=== PATIENT | male | born 1940 | race Caucasian/White ===

== ENCOUNTER → 2017-06-28 | Outpatient (CLI) | payer BC ==
[~2017-06-28] MED LIST: AGG PO; NXM/40 PO; OFLO0.3S OPL; PRED1SUS3 OPR; ZCRT/40 PO
--- NOTE | 2017-06-28 10:05 | DIAGNOSTIC IMAGING REPORT ---
(RENAL)RETROPERITON COMP CLINICAL HISTORY: 77 years-old Male presenting with CHRONIC KIDNEY DISEASE, STAGE3, POST PROCEDURE. TECHNIQUE: Real-time grayscale and limited color Doppler ultrasound imaging of the kidneys and bladder was performed. COMPARISON: 07/31/2012. FINDINGS: Right kidney: Normal echogenicity. Right kidney measures 10.2 cm. No hydronephrosis. No convincing evidence of calculus or mass. Normal perfusion. Left kidney: Normal echogenicity. Left kidney measures 11 cm. No hydronephrosis. No convincing evidence of calculus or mass. Normal perfusion. Bladder: Reported eccentric right-sided wall thickening, although images are were not saved. Reportedly, bilateral ureteral jets also documented. Other: Suggestion of hyperechogenicity of the liver parenchyma, which could suggest steatosis. IMPRESSION: 1. No evidence of obstruction. 2. Reported eccentric right-sided bladder wall thickening. Further evaluation with cross-sectional imaging or direct visualization with cystoscopy could be considered as clinically warranted. Findings were reportedly visualized by the cryptographic technician, although not saved in PACS. 3. Suggestion of hepatic steatosis. Electronically signed by: Collin Dunaway M.D. 06/28/2017 10:03 AM Dictated Date/Time: 06/28/2017 9:58 AM
--- NOTE | 2017-06-28 10:07 | DIAGNOSTIC IMAGING REPORT ---
ABDOMEN LIMITED (US) HISTORY: Renal insufficiency CHRONIC KIDNEY DISEASE, STAGE3, POST PROCEDURE. Nodule. Hernia. COMPARISON: None. FINDINGS: Small fat-containing periumbilical hernia. Maximum linear dimension is at 1 cm. No evidence of bowel containment. IMPRESSION: 1 cm periumbilical fat-containing hernia. No evidence of bowel containment. This appears to be nonreducible The above report was generated using voice recognition software. It may contain grammatical, syntax or spelling errors. Electronically signed by: John Suarez M.D. 06/28/2017 10:06 AM Dictated Date/Time: 06/28/2017 10:04 AM
== END | disposition home or self-care (01) ==
LOC: C.ULTR 09:00
PROVIDERS: ATTEND Family Medicine
DX: N18.3 Chronic kidney disease, stage 3 (moderate) (principal); Z98.890 Other specified postprocedural states; K42.9 Umbilical hernia without obstruction or gangrene

== ENCOUNTER → 2018-01-07 | Outpatient (CLI) | payer BC ==
[~2018-01-07] MED LIST changes: +NTRGSL/4 UT; -OFLO0.3S OPL; +OXYC-57 PO; -PRED1SUS3 OPR; +[UNRECOGNIZED DRUG - OTHER] OPB
--- NOTE | 2018-01-08 07:24 | DIAGNOSTIC IMAGING REPORT ---
ADDENDUM Addendum: In comparison to ultrasound of June 28, 2017, the lesions arising from the right lateral wall of the bladder have mildly increased in size and are highly suggestive of a neoplasm. Electronically signed by: Ulises Schaefer M.D. 01/08/2018 7:48 AM Dictated Date/Time: 01/08/2018 7:47 AM ORIGINAL REPORT BLADDER ULTRASOUND CLINICAL HISTORY: REEVALUATE BLADDER THICKENING COMPARISON STUDY: Renal ultrasound June 28, [address] of the abdomen and pelvis April 30, 2014. FINDINGS: Note is made of a 1 cm polypoid lesion which contains color flow within the right posterior lateral aspect of the bladder. In addition, there is asymmetric right lateral bladder wall thickening. IMPRESSION: 1 cm polypoid lesion within the right posterior lateral aspect of the bladder which contains color flow and is highly suggestive of a urothelial neoplasm. In addition, asymmetric irregular right lateral bladder wall thickening which is also suspicious for urothelial neoplasm. Urologic consultation is recommended. Electronically signed by: Ulises Schaefer M.D. 01/08/2018 7:23 AM Dictated Date/Time: 01/08/2018 7:18 AM
== END | disposition home or self-care (01) ==
LOC: C.ULTR 12:22
PROVIDERS: ATTEND Family Medicine
DX: N32.89 Other specified disorders of bladder (principal)

== ENCOUNTER → 2018-02-03 | Day surgery (SDC) | payer BC ==
[2018-01-20 13:22] VITALS: BMI 23.0
--- NOTE | 2018-01-20 13:37 | PAT Medication Instructions ---
Service Date Jan 20, 2018. Current Home Medication List Cyclosporine (Ophth) (Restasis), 1 DROP OPB BID Dipyridamole/Aspirin (Aggrenox 25-200 mg), 1 CAP PO BID Esomeprazole Magnesium (Nexium), 1 CAP PO QAM Nitroglycerin (Nitrostat), 0.4 MG UT PRN Simvastatin (Zocor), 1 TAB PO QPM Medication Instructions For Your Scheduled Surgery -Contact your prescriber for instructions for: Dipyridamole/Aspirin (Aggrenox 25-200 mg), 1 CAP PO BID -Continue as directed: Nitroglycerin (Nitrostat), 0.4 MG UT PRN - Take the following medications the morning of surgery with a sip of water: Cyclosporine (Ophth) (Restasis), 1 DROP OPB BID Esomeprazole Magnesium (Nexium), 1 CAP PO QAM - Take the following medications as scheduled the night before surgery: Cyclosporine (Ophth) (Restasis), 1 DROP OPB BID Simvastatin (Zocor), 1 TAB PO QPM If you have any questions please call us at [phone] or [phone] or [phone]
[2018-01-20 14:52] LABS: BASO % 0.4 %; BASO ABS # 0.02 K/uL (0-0.2); EOS % 7.2 %; HEMATOCRIT 39.5 % (42-52); HEMOGLOBIN 13.7 g/dL (14.0-18.0); IG# 0.01 K/uL (0.00-0.02); LYMPH % 32.3 %; MEAN CELL VOLUME 95.2 fL (80-100); MEAN CORPUSCULAR HGB CONC 34.7 g/dl (32-36); MEAN PLATELET VOLUME 10.4 fL (7.4-10.4); MONO % 12.2 %; MONO ABS # 0.68 K/uL (0.11-0.59); NEUT % 47.7 %; NEUT ABS # 2.67 K/uL (1.4-6.5); PLATELET COUNT 124 K/uL (130-400); RED CELL DISTRIBUTION WIDTH CV 12.4 % (11.5-14.5); RED CELL DISTRIBUTION WIDTH SD 42.8 fL (36.4-46.3); WHITE BLOOD COUNT 5.58 K/uL (4.8-10.8)
[2018-01-20 14:59] LABS: CALCIUM 8.6 mg/dl (8.5-10.1); CREATININE 1.64 mg/dl (0.60-1.40); POTASSIUM 4.4 mmol/L (3.5-5.1)
[~2018-02-03] VITALS: Ht 175.3 cm; Wt 70.6 kg
[~2018-02-03] MED LIST changes: +ASCO10003 PO; +ATROPINE SULFATE 0.1 MG/ML 5ML SYR IV PRN; +CIPR-255 PO; +CYCL0.052 OPB; +Cysto-Conray II 17.2% 250ML BOTTLE ONE; +DEXAMETHASONE SOD INJ 4 MG/ML VIAL ONE; +EpHEDrine SULFATE INJ 50 MG/ML AMP IV PRN; +FENTANYL CITRATE INJ 50 MCG/1 ML 2 ML VIAL IV PRN; +FENTANYL CITRATE INJ 50 MCG/1 ML 2 ML VIAL ONE; +LACTATED RINGER'S 1000ML 1,000 ML IV SCH; +LIDOCAINE HCL 2% 2 ML VIAL (20MG/ML) ONE; +ONDANSETRON INJ 2 MG/ML 2 ML VIAL IV PRN; +ONDANSETRON INJ 2 MG/ML 2 ML VIAL ONE; -OXYC-57 PO; +OXYCODONE/ACETAMINOPHEN 7.5-325 TAB PO PRN; +PHEN-775 PO; +PROPOFOL IV EMULSION 10 MG/ML 20 ML VIAL IV ONE; +ZINC1CAP PO; -[UNRECOGNIZED DRUG - OTHER] OPB
[2018-02-03 05:54] VITALS: BP 113/74; PULSE 61; TEMP 36.6; O2SAT 97; Ht 175.3 cm; Wt 70.6 kg
--- NOTE | 2018-02-03 06:54 | History & Physical Bridge Note ---
H&P Re-Evaluation Bridge Note: I have examined the patient, reviewed the History & Physical and in the interval since the performance of the History & Physical I have noted the following changes of clinical significance: No changes noted
--- NOTE | 2018-02-03 06:59 | Discharge Instructions ---
Discharge Instructions Date of Service Feb 03, 2018. Admission Reason for Admission: Bladder Mass Discharge Discharge Diagnosis / Problem: Hematuria Discharge Goals Goal(s): Decrease discomfort, Improve function Activity Recommendations Activity Limitations: resume your previous activity Lifting Limitations: gradually increase as tolerated Exercise/Sports Limitations: gradually increase as tolerated Shower/Bathe: no limitations . Instructions / Follow-Up Instructions / Follow-Up May have blood in the urine. May have discomfort or burning. Call if any fevers or chills. Current Hospital Diet Patient's current hospital diet: Discharge Diet Recommended Diet: Regular Diet Procedures Procedures Performed: Cystoscopy with bilateral retrograde pyelograms. Pending Studies Studies pending at discharge: no Medical Emergencies . Who to Call and When: Medical Emergencies: If at any time you feel your situation is an emergency, please call 911 immediately. . Non-Emergent Contact Non-Emergency issues call your: Primary Care Provider, Urologist Call Non-Emergent contact if: you have a fever, temperature is above 101, temperature is above 101.5, your pain is not controlled, your pain is worsening . . "Provider Documentation" section prepared by Yoan Basilio. .
[2018-02-03] MEDS: CIPROFLOXACIN / D5W 400 MG IV SCH ×2 (07:12→07:13)
--- NOTE | 2018-02-03 07:45 | [facility] Operative Report ---
Operative Report Operative Date Feb 03, 2018. Pre-Operative Diagnosis Hematuria, Bladder Abnormality Post-Operative Diagnosis Same, bladder masses Procedure(s) Performed Cystoscopy with bilateral retrograde pyelogram and TURBT, medium. Surgeon Praful Estimated Blood Loss Minimal Findings Bladder with two lesions, one approx 2 cm and other 2.5 cm. Specimens 1. Bladder Neck Left, 2 cm 2. Bladder wall right, 2.5 cm Drains None Anesthesia Type General Complication(s) none Disposition Recovery Room / PACU Indications Hematuria with abnormality on imaging. Risks and benefits discussed with patient. Description of Procedure Patient was consented and brought back to the operating room. Patient was placed under anesthesia in the supine position and moved to the dorsal lithotomy position. Patient was prepped and draped in the regular sterile fashion. A time out was completed. A 30degree Cystoscope was placed into the bladder and the entire bladder was examined. The bladder was moderately trabeculated. No lesions or masses were identified. The UO's were identified. Two tumors were identified. The UO bilaterally was cannulized with a catheter and a retrograde pyelogram was completed. The bladder was left full and the resection scope was placed. The two tumors were resected and sent seperate. The area was fulgurated. No other areas were identified. At this point, the bladder was emptied. The scope was removed. The patient was cleaned, aroused from anesthesia, and transferred to the pacu in stable condition having tolerated the procedure well with no complications. I was present and participated in all aspects of the procedure. The patient will be monitored in the PACU until transferred I attest to the content of the Intraoperative Record and any orders documented therein. Any exceptions are noted below.
--- NOTE | 2018-02-03 07:47 | DIAGNOSTIC IMAGING REPORT ---
INTRAOPERATIVE RADIOGRAPHS CLINICAL HISTORY: Retrograde ureterogram. Fluoroscopy time: 28 seconds. FINDINGS: 5 spot fluoroscopic views from a bilateral retrograde ureterogram are correlated with abdominal CT dated 04/30/2014 and bladder ultrasound dated 01/07/2018. Mild hydronephrosis is suggested bilaterally. IMPRESSION: Bilateral hydronephrosis is suggested on the retrograde ureterograms. See operative report for detailed findings. Electronically signed by: Fausto Childress M.D. 02/03/2018 7:46 AM Dictated Date/Time: 02/03/2018 7:44 AM
[2018-02-03 08:37] VITALS: BP 111/73; PULSE 63; TEMP 36.3; O2SAT 97
[2018-02-03 08:52] VITALS: BP 112/78; PULSE 65; O2SAT 98
--- NOTE | 2018-02-03 08:56 | Anesthesiology Progress Note ---
Anesthesia Post Op Note Date & Time Feb 03, 2018 at 08:56 Vital Signs Pain Intensity: 2 Vital Signs Past 12 Hours Date Time Temp Pulse Resp B/P (MAP) Pulse Ox O2 Delivery O2 Flow Rate FiO2 02/03/18 08:37 36.3 63 18 111/73 97 Room Air 02/03/18 08:30 36.1 62 14 108/68 97 Room Air 02/03/18 08:20 64 16 103/71 97 Room Air 02/03/18 08:10 67 16 105/64 97 Oxymask 3 02/03/18 08:00 60 16 108/72 97 Oxymask 3 02/03/18 07:54 36.2 66 16 118/73 97 Oxymask 5 02/03/18 05:54 36.6 61 18 113/74 (87) 97 Room Air Notes Mental Status: alert / awake / arousable, participated in evaluation Pt Amnestic to Procedure: Yes Nausea / Vomiting: adequately controlled Pain: adequately controlled Airway Patency, RR, SpO2: stable & adequate BP & HR: stable & adequate Hydration State: stable & adequate Anesthetic Complications: no major complications apparent
[2018-02-03 09:22] VITALS: BP 115/75; PULSE 68; O2SAT 99
[2018-02-03 09:43] VITALS: BP 140/81; PULSE 67; O2SAT 97
== END | disposition home or self-care (01) ==
LOC: C.ACU 05:32
PROVIDERS: ATTEND Urology
DX: C67.9 Malignant neoplasm of bladder, unspecified (principal); R31.0 Gross hematuria; D64.9 Anemia, unspecified; I25.10 Atherosclerotic heart disease of native coronary artery without angina pectoris; I65.29 Occlusion and stenosis of unspecified carotid artery; N28.9 Disorder of kidney and ureter, unspecified; K21.9 Gastro-esophageal reflux disease without esophagitis; E78.00 Pure hypercholesterolemia, unspecified; Z87.891 Personal history of nicotine dependence; Z79.899 Other long term (current) drug therapy

== ENCOUNTER 2018-02-07 14:00 | Inpatient (IN) | payer BC, OTHER ==
[2018-02-07] VITALS (7 sets, daily range): BP systolic 65–103; BP diastolic 34–63; PULSE 68–80; TEMP 36.3–36.6; O2SAT 95–97; Ht 175.3 cm; Wt 70.0 kg
[~2018-02-07] VITALS: Ht 175.3 cm; Wt 70.0 kg
[~2018-02-07 14:00] MED LIST changes: -ATROPINE SULFATE 0.1 MG/ML 5ML SYR IV PRN; -Cysto-Conray II 17.2% 250ML BOTTLE ONE; -DEXAMETHASONE SOD INJ 4 MG/ML VIAL ONE; -EpHEDrine SULFATE INJ 50 MG/ML AMP IV PRN; -FENTANYL CITRATE INJ 50 MCG/1 ML 2 ML VIAL IV PRN; -FENTANYL CITRATE INJ 50 MCG/1 ML 2 ML VIAL ONE; -LACTATED RINGER'S 1000ML 1,000 ML IV SCH; -LIDOCAINE HCL 2% 2 ML VIAL (20MG/ML) ONE; -ONDANSETRON INJ 2 MG/ML 2 ML VIAL IV PRN; -ONDANSETRON INJ 2 MG/ML 2 ML VIAL ONE; -OXYCODONE/ACETAMINOPHEN 7.5-325 TAB PO PRN; -PROPOFOL IV EMULSION 10 MG/ML 20 ML VIAL IV ONE
[2018-02-07] MEDS ORDERED: SODIUM CHLORIDE 0.9% 500ML 500 ML IV STA ×2 (14:33)
[2018-02-07] MEDS ORDERED: ONDANSETRON INJ 2 MG/ML 2 ML VIAL IV STA (14:33)
[2018-02-07] MEDS: MoRPHine SULFATE 10 MG/ML CARP/VIAL IV PRN ×3 (14:40→16:13)
--- NOTE | 2018-02-07 14:52 | DIAGNOSTIC IMAGING REPORT ---
SINGLE VIEW CHEST CLINICAL HISTORY: Generalized abdominal pain. FINDINGS: An AP, portable, upright chest radiograph is compared to study dated 09/12/2017. Correlation is made with chest CT dated 10/09/2011. The examination is degraded by portable technique and patient rotation. The patient is status post midline sternotomy. The heart is top normal for projection. The pulmonary vasculature is noncongested. Chronic interstitial thickening is unchanged. No airspace consolidation or large pleural effusion is identified. No pneumothorax is seen. The skeletal structures are osteopenic. The bony thorax is grossly intact. IMPRESSION: No acute cardiopulmonary abnormality. Electronically signed by: Fausto Childress M.D. 02/07/2018 2:50 PM Dictated Date/Time: 02/07/2018 2:49 PM
[2018-02-07 14:55] LABS: BASO % 0.1 %; BASO ABS # 0.02 K/uL (0-0.2); EOS % 1.7 %; EOS ABS # 0.27 K/uL (0-0.5); HEMATOCRIT 44.1 % (42-52); HEMOGLOBIN 16.3 g/dL (14.0-18.0); IG# 0.14 K/uL (0.00-0.02); LYMPH % 15.5 %; LYMPH ABS # 2.44 K/uL (1.2-3.4); MEAN CELL VOLUME 90.9 fL (80-100); MEAN CORPUSCULAR HEMOGLOBIN 33.6 pg (25-34); MEAN PLATELET VOLUME 10.8 fL (7.4-10.4); MONO % 13.5 %; MONO ABS # 2.13 K/uL (0.11-0.59); NEUT % 68.3 %; NEUT ABS # 10.75 K/uL (1.4-6.5); PLATELET COUNT 171 K/uL (130-400); RED CELL DISTRIBUTION WIDTH CV 12.4 % (11.5-14.5); WHITE BLOOD COUNT 15.75 K/uL (4.8-10.8)
[2018-02-07 15:02] LABS: PTT PATIENT 27.7 SECONDS (21.0-31.0)
--- NOTE | 2018-02-07 15:04 | DIAGNOSTIC IMAGING REPORT ---
ABD/PELVIS WITHOUT FOR STONE CLINICAL HISTORY: 77 years-old Male presenting with EVALUATE FLANK PAIN/HEMATURIA. TECHNIQUE: Multidetector CT of the abdomen and pelvis was performed without the use of intravenous contrast. IV contrast: None. A dose lowering technique was used consistent with the principles of ALARA (as low as reasonably achievable). COMPARISON: 04/30/2014. CT DOSE (mGy.cm): The estimated cumulative dose is 340.39 mGy.cm. FINDINGS: [employer] topogram: Median sternotomy wires. Cholecystectomy clips. Gaseous distended bowel. Lung bases: Minimal basilar opacities, likely atelectasis. Normal heart size. No pericardial or pleural effusion. Liver: Normal morphology. Normal density. Biliary: No gross biliary ductal dilatation allowing for noncontrast technique. Gallbladder surgically absent. Pancreas: Mild parenchymal atrophy. Spleen: Normal noncontrast appearance. Adrenal glands: Normal noncontrast appearance. Kidneys and ureters: Normal noncontrast appearance. Nonspecific mild perinephric fat stranding. No nephrolithiasis. No hydronephrosis. Normal ureters. Bladder: Mild circumferential bladder wall thickening. Perivesicular fat infiltration in the space of Retzius. Pelvic organs: Prostate and seminal vesicles normal. Few prostatic calcifications noted. Bowel: Fluid in the colon could suggest a diarrheal state. Few scattered colonic diverticula. The appendix is not visualized. Small hiatal hernia. Multiple duodenal diverticula. Mild distention of proximal small bowel without a transition point to suggest obstruction. Peritoneal cavity: No free fluid or intraperitoneal gas. Extensive retroperitoneal and extraperitoneal pelvic fluid most pronounced in the presacral space and space of Retzius. This does not appear to arise from the pancreas or kidneys and is primarily pelvic. Lymph nodes: Few scattered subcentimeter retroperitoneal lymph nodes, likely reactive. Vasculature: Atherosclerosis of the normal caliber abdominal aorta. Abdominal wall: Evidence of postsurgical changes in the ventral midline abdomen. No associated fluid. Musculoskeletal: Degenerative changes of the spine. Bilateral pars defects of L5. IMPRESSION: 1. Nonspecific retroperitoneal and extraperitoneal pelvic fluid/inflammatory change. This is primarily centered in the pelvis. Etiology of this is not clear. This may originate from the bladder. Correlate with urinalysis to exclude infectious cystitis. Circumferential bladder wall thickening could also suggest cystitis or be secondary to chronic bladder outlet obstruction. No nephrolithiasis or ureteral calculi. The examination is limited due to noncontrast technique. Close clinical and imaging follow-up recommended. Electronically signed by: Collin Dunaway M.D. 02/07/2018 3:02 PM Dictated Date/Time: 02/07/2018 2:53 PM
[2018-02-07] MEDS ORDERED: CIPR-255 PO (15:11)
[2018-02-07] MEDS ORDERED: ZINC50TA3 PO (15:12)
[2018-02-07 15:16] LABS: ALBUMIN 3.9 gm/dl (3.4-5.0); CREATININE 3.2 mg/dl (0.60-1.40)
[2018-02-07 15:18] LABS: TOTAL PROTEIN 7.6 gm/dl (6.4-8.2)
[2018-02-07] MEDS ORDERED: PIPERACILLIN/TAZOBACTAM 4.5 GM/100ML D5W IV STA (15:18)
[2018-02-07] MEDS ORDERED: DAPTOmycin IV 500 MG in SODIUM CHLORIDE 0.9% 50ML 50 ML IV STA (15:42)
[2018-02-07] MEDS ORDERED: SODIUM CHLORIDE 0.9% 1000ML 1,000 ML IV STA (15:42)
[2018-02-07] MEDS ORDERED: HYDROmorphone INJ 1 MG/ML SYR IV STA (16:01)
[2018-02-07] MEDS ORDERED: SODIUM CHLORIDE 0.9% 1000ML 1,000 ML IV SCH (16:05)
--- NOTE | 2018-02-07 16:07 | EMERGENCY ROOM VISIT NOTE ---
History Report prepared by Niki: Missael Carvajal Under the Supervision of: Dr. Fausto Ames M.D. First contact with patient: 14:22 Chief Complaint: REFERRED BY DOCTOR Stated Complaint: CT SCAN/PAIN MED REFERRED BY DR. ROOSEVELT BOUCHER History of Present Illness The patient is a 77 year old male who presents to the Emergency Room with complaints of significantly worsening abdominal pain that began on the 13th, three days ago. The patient's notes that he had a cystoscopy on the 12th and that his pain began the day after. The patient's pain was initially all on the right side of his abdomen, but is now localized to his lower abdomen. He rates the current severity as a 10/10. The patient states that his abdominal pain is worsened with urination. He is drinking a lot of fluids currently and is urinating every hour on the hour. There has been blood in the urine ever since the surgery. He has not vomited, and there is no flank pain. The patient has a history of a hernia mesh repair, appendectomy, and cholecystectomy. He has also had a CABG surgery. The patient was referred here by his urology office , they want an emergent CT-scan of the abdomen. He has never had any kidney stones. 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 Review of Systems See HPI for pertinent positives & negatives. A total of 10 systems reviewed and were otherwise negative. Past Medical & Surgical Medical Problems: (1) CAD (coronary artery disease) (2) CKD (chronic kidney disease) stage 3, GFR 30-59 ml/min (3) CVA (cerebral vascular accident) (4) GERD (gastroesophageal reflux disease) (5) Intractable pain (6) Small bowel obstruction due to adhesions (7) UTI (urinary tract infection) (8) Vertebral artery occlusion Surgical Problems: (1) Hx of cholecystectomy Family History Diabetes mellitus FH: heart disease FHx: lung disease Hypertension Social History Smoking Status: Never Smoker Alcohol Use: none Drug Use: none Marital Status: Housing Status: lives with family Occupation Status: retired Current/Historical Medications Scheduled Ascorbic Acid (Vitamin C), PO DAILY Ciprofloxacin Hcl (Cipro), 500 MG PO BID Cyclosporine (Ophth) (Restasis), 1 DROP OPB BID Dipyridamole/Aspirin (Aggrenox 25-200 mg), 1 CAP PO BID Esomeprazole Magnesium (Nexium), 1 CAP PO QAM Nitroglycerin (Nitrostat), 0.4 MG UT PRN Simvastatin (Zocor), 1 TAB PO QPM Zinc (Zinc), 50 MG PO QAM Allergies Coded Allergies: Clopidogrel (Verified Allergy, Severe, SHORTNESS OF BREATH, 02/07/18) Meperidine (Verified Allergy, Severe, DIFFICULTY BREATHING, 02/07/18) Unclassified Drugs (Verified Allergy, Unknown, NEOPRENE - RASH, 02/07/18) DENIES LATEX ALLERGY Physical Exam Vital Signs Date Time Temp Pulse Resp B/P (MAP) Pulse Ox O2 Delivery O2 Flow Rate FiO2 02/07/18 15:56 84 18 148/94 96 Room Air 02/07/18 15:05 75 17 93/65 95 Room Air 02/07/18 14:07 36.3 97 20 93/66 94 Room Air Physical Exam GENERAL: Patient is in moderate distress, secondary to pain. HEENT: No acute trauma, normocephalic atraumatic, mucous membranes moist, no nasal congestion, no scleral icterus. NECK: No stridor, no adenopathy, no meningismus, trachea is midline. LUNGS: Clear to auscultation bilaterally, no wheeze, no rhonchi, breath sounds equal. HEART: Without murmurs gallops or rubs, regular rate and rhythm. ABDOMEN: Soft, and diffusely tender, mostly tender in the low pelvis over the bladder. Bowel sounds positive, no hernias, no peritonitis. GROIN: No obvious cellulitis/erythema. EXTREMITIES: No cyanosis or edema, full range of motion of all the joints without pain or difficulty, no signs for acute trauma. NEUROLOGIC: Oriented x 3, no acute motor or sensory deficits, no focal weakness. SKIN: No rash, no jaundice, no diaphoresis. Medical Decision & Procedures ER Provider Diagnostic Interpretation: Radiology results as stated below per my review and radiologist interpretation: ABD/PELVIS WITHOUT FOR STONE CLINICAL HISTORY: 77 years-old Male presenting with EVALUATE FLANK PAIN/HEMATURIA. TECHNIQUE: Multidetector CT of the abdomen and pelvis was performed without the use of intravenous contrast. IV contrast: None. A dose lowering technique was used consistent with the principles of ALARA (as low as reasonably achievable). COMPARISON: 04/30/2014. CT DOSE (mGy.cm): The estimated cumulative dose is 340.39 mGy.cm. FINDINGS: Mixer Helper topogram: Median sternotomy wires. Cholecystectomy clips. Gaseous distended bowel. Lung bases: Minimal basilar opacities, likely atelectasis. Normal heart size. No pericardial or pleural effusion. Liver: Normal morphology. Normal density. Biliary: No gross biliary ductal dilatation allowing for noncontrast technique. Gallbladder surgically absent. Pancreas: Mild parenchymal atrophy. Spleen: Normal noncontrast appearance. Adrenal glands: Normal noncontrast appearance. Kidneys and ureters: Normal noncontrast appearance. Nonspecific mild perinephric fat stranding. No nephrolithiasis. No hydronephrosis. Normal ureters. Bladder: Mild circumferential bladder wall thickening. Perivesicular fat infiltration in the space of Retzius. Pelvic organs: Prostate and seminal vesicles normal. Few prostatic calcifications noted. Bowel: Fluid in the colon could suggest a diarrheal state. Few scattered colonic diverticula. The appendix is not visualized. Small hiatal hernia. Multiple duodenal diverticula. Mild distention of proximal small bowel without a transition point to suggest obstruction. Peritoneal cavity: No free fluid or intraperitoneal gas. Extensive retroperitoneal and extraperitoneal pelvic fluid most pronounced in the presacral space and space of Retzius. This does not appear to arise from the pancreas or kidneys and is primarily pelvic. Lymph nodes: Few scattered subcentimeter retroperitoneal lymph nodes, likely reactive. Vasculature: Atherosclerosis of the normal caliber abdominal aorta. Abdominal wall: Evidence of postsurgical changes in the ventral midline abdomen. No associated fluid. Musculoskeletal: Degenerative changes of the spine. Bilateral pars defects of L5. IMPRESSION: 1. Nonspecific retroperitoneal and extraperitoneal pelvic fluid/inflammatory change. This is primarily centered in the pelvis. Etiology of this is not clear. This may originate from the bladder. Correlate with urinalysis to exclude infectious cystitis. Circumferential bladder wall thickening could also suggest cystitis or be secondary to chronic bladder outlet obstruction. No nephrolithiasis or ureteral calculi. The examination is limited due to noncontrast technique. Close clinical and imaging follow-up recommended. Electronically signed by: Collin Dunaway M.D. 02/07/2018 3:02 PM Dictated Date/Time: 02/07/2018 2:53 PM SINGLE VIEW CHEST CLINICAL HISTORY: Generalized abdominal pain. FINDINGS: An AP, portable, upright chest radiograph is compared to study dated 09/12/2017. Correlation is made with chest CT dated 10/09/2011. The examination is degraded by portable technique and patient rotation. The patient is status post midline sternotomy. The heart is top normal for projection. The pulmonary vasculature is noncongested. Chronic interstitial thickening is unchanged. No airspace consolidation or large pleural effusion is identified. No pneumothorax is seen. The skeletal structures are osteopenic. The bony thorax is grossly intact. IMPRESSION: No acute cardiopulmonary abnormality. Electronically signed by: Fausto Childress M.D. 02/07/2018 2:50 PM Dictated Date/Time: 02/07/2018 2:49 PM Laboratory Results 02/07/18 14:34 Red Blood Count 4.85, Mean Corpuscular Volume 90.9, Mean Corpuscular Hemoglobin 33.6, Mean Corpuscular Hemoglobin Concent 37.0, Mean Platelet Volume 10.8, Neutrophils (%) (Auto) 68.3, Lymphocytes (%) (Auto) 15.5, Monocytes (%) (Auto) 13.5, Eosinophils (%) (Auto) 1.7, Basophils (%) (Auto) 0.1, Neutrophils # (Auto ) 10.75, Lymphocytes # (Auto) 2.44, Monocytes # (Auto) 2.13, Eosinophils # (Auto ) 0.27, Basophils # (Auto) 0.02 02/07/18 14:34 Test 02/07/18 14:34 White Blood Count 15.75 K/uL (4.8-10.8) Red Blood Count 4.85 M/uL (4.7-6.1) Hemoglobin 16.3 g/dL (14.0-18.0) Hematocrit 44.1 % (42-52) Mean Corpuscular Volume 90.9 fL (80-100) Mean Corpuscular Hemoglobin 33.6 pg (25-34) Mean Corpuscular Hemoglobin Concent 37.0 g/dl (32-36) Platelet Count 171 K/uL (130-400) Mean Platelet Volume 10.8 fL (7.4-10.4) Neutrophils (%) (Auto) 68.3 % Lymphocytes (%) (Auto) 15.5 % Monocytes (%) (Auto) 13.5 % Eosinophils (%) (Auto) 1.7 % Basophils (%) (Auto) 0.1 % Neutrophils # (Auto) 10.75 K/uL (1.4-6.5) Lymphocytes # (Auto) 2.44 K/uL (1.2-3.4) Monocytes # (Auto) 2.13 K/uL (0.11-0.59) Eosinophils # (Auto) 0.27 K/uL (0-0.5) Basophils # (Auto) 0.02 K/uL (0-0.2) RDW Standard Deviation 41.0 fL (36.4-46.3) RDW Coefficient of Variation 12.4 % (11.5-14.5) Immature Granulocyte % (Auto) 0.9 % Immature Granulocyte # (Auto) 0.14 K/uL (0.00-0.02) Prothrombin Time 10.0 SECONDS (9.0-12.0) Prothromb Time International Ratio 1.0 (0.9-1.1) Activated Partial Thromboplast Time 27.7 SECONDS (21.0-31.0) Partial Thromboplastin Ratio 1.1 Urine Color ORANGE Urine Appearance TURBID (CLEAR) Urine pH (4.5-7.5) Urine Specific [place] 1.013 (1.000-1.030) Urine Protein (NEG) Urine Glucose (UA) (NEG) Urine Ketones (NEG) Urine Occult Blood (NEG) Urine Nitrite (NEG) Urine Bilirubin (NEG) Urine Urobilinogen (NEG) Urine Leukocyte Esterase (NEG) Urine RBC >30 /hpf (0-4) Urine WBC 5-10 /hpf (0-5) Urine Epithelial Cells 5-10 /lpf (0-5) Urine Bacteria 1+ (NEG) Anion Gap 10.0 mmol/L (3-11) Est Creatinine Clear Calc Drug Dose 19.4 ml/min Estimated GFR () 20.7 Estimated GFR (Non- 17.8 BUN/Creatinine Ratio 13.1 (10-20) Calcium Level 9.0 mg/dl (8.5-10.1) Total Bilirubin 1.5 mg/dl (0.2-1) Aspartate Amino Transf (AST/SGOT) 12 U/L (15-37) Alanine Aminotransferase (ALT/SGPT) 25 U/L (12-78) Alkaline Phosphatase 115 U/L (45-117) Total Protein 7.6 gm/dl (6.4-8.2) Albumin 3.9 gm/dl (3.4-5.0) Globulin 3.7 gm/dl (2.5-4.0) Albumin/Globulin Ratio 1.1 (0.9-2) Lipase 207 U/L (73-393) Laboratory results reviewed by me. Medications Administered Medications (Trade) Dose Ordered Sig/Robin Route Start Time Stop Time Status Last Admin Dose Admin Morphine Sulfate (MoRPHine SULFATE INJ) 6 mg Q15M PRN IV 02/07/18 14:45 02/21/18 14:44 02/07/18 16:13 6 MG Ondansetron HCl (Zofran Inj) 4 mg NOW STAT IV 02/07/18 14:33 02/07/18 14:36 DC 02/07/18 14:40 4 MG Sodium Chloride 500 ml @ 999 mls/hr Q31M STAT IV 02/07/18 14:33 02/07/18 15:03 DC 02/07/18 14:41 999 MLS/HR Sodium Chloride 500 ml @ 999 mls/hr Q31M STAT IV 02/07/18 14:33 02/07/18 15:03 DC 02/07/18 14:41 999 MLS/HR Piperacillin Sod/ Tazobactam Sod (Zosyn Iv) 4.5 gm NOW STAT IV 02/07/18 15:18 02/07/18 15:23 DC 02/07/18 16:34 4.5 GM Daptomycin 500 mg/ Sodium Chloride 60 ml @ 100 mls/hr NOW STAT IV 02/07/18 15:42 02/07/18 16:17 DC 02/07/18 17:03 100 MLS/HR Sodium Chloride 1,000 ml @ 999 mls/hr Q1H1M STAT IV 02/07/18 15:42 02/07/18 16:48 DC 02/07/18 15:49 999 MLS/HR ED Course 1426: The patient was evaluated in room C3. A complete history and physical exam was performed. 1433: Ordered Sodium Chloride 500 mL @ 999 mL/hr IV, Sodium Chloride 500 mL @ 999 mL/hr IV, Zofran 4 mg IV. 1445: Ordered Morphine Sulfate 6 mg IV. 1518: Ordered Piperacillin Sod/Tazobactam Sod 4.5 gm IV. 1526: I discussed the case with Dr. Daniel Banks. He states to make sure we give him antibiotics, and admit to the medicine service. He will come see him in the department sometime. 1334: I discussed the case with Dr. Barbie LIZ Hospitalist. She will evaluate the patient for further treatment. 1338: I discussed and updated the patient with the findings of his case. He verbalizes agreement and understanding with the treatment plan. Medical Decision Differential Diagnosis includes; urinary retention, urinary infection, bladder rupture, hydronephrosis, pyelonephritis, dehydration, electrolyte imbalance, bowel perforation. There is a moderate leukocytosis at 15,000, this is consistent with infection. No concerning anemia. Renal panel testing shows renal failure with a creatinine above 3. No hepatitis, pancreatitis or coagulopathy. Urinalysis shows some blood and possible infection. Urine culture and blood cultures are pending. Lactic acid level was mildly elevated, consistent possibly with infection or dehydration. Abdominal and pelvis CT shows pelvic inflammation consistent with infection/cystitis. No ureteral obstruction, no abscess, no free air. Bladder scan showed around 60-80 cc, no significant urinary retention. The patient received IV saline, IV morphine and IV Zofran. He received IV Zosyn and IV daptomycin as antibiotic coverage. I spoke with urology. I talked with the on-call hospitalist. I do think a hospital stay is warranted. The patient appears to have cystitis, this has led to his symptoms. A hospital stay is warranted. Medication Reconcilliation Current Medication List: was personally reviewed by me Blood Pressure Screening Patient's blood pressure: Low blood pressure Referred to Hospitalist. Consults Time Called: 1520 Consulting Physician: Dr. Daniel Banks Returned Call: 1526 I discussed the case with Dr. Daniel Banks. He states to make sure we give him antibiotics, and admit to the medicine service. He will come see him in the department sometime. Additional Consults: Time Called: 1331 Consulted Physician: Dr. Barbie LIZ Hospitalist. Returned Call: 1334 Additional Comments: I discussed the case with Dr. Barbie LIZ Hospitalist. She will evaluate the patient for further treatment. Impression Primary Impression: Acute renal failure Additional Impressions: Dehydration Cystitis Status post cystoscopy Scribe Attestation The scribe's documentation has been prepared under my direction and personally reviewed by me in its entirety. I confirm that the note above accurately reflects all work, treatment, procedures, and medical decision making performed by me. Departure Information Dispostion Being Evaluated By Hospitalist Referrals Blaine Tolbert D.O. (PCP) Patient Instructions My [facility] Problem Qualifiers
--- NOTE | 2018-02-07 16:13 | History and Physical ---
History & Physical Date & Time of Service: Feb 07, 2018 at 15:42 Chief Complaint: Ct Scan/Pain Med Referred By Dr. Basilio [facility] Primary Care Physician: Blaine Tolbert D.O. History of Present Illness This is a 77 yo M with PMHx of CAD s/p CABG 1, HLD, vertebral artery stenosis/ occlusion, history of CVA, GERD, CKD, small bowel obstruction s/p repair of incisional hernia and lysis of adhesions Aug 2017, who underwent cystoscopy with bilateral retrograde pyelogram and TURBT, two tumors identified and biopsied, on 02/[address] Basilio. The patient was placed on Cipro 500 twice a day 3 days. He reported presents today with intractable suprapubic pain. He describes the pain as constant, sharp, starting within the first 24 hours after the procedure. He has developed gross hematuria and is noticing pain which lasts ~ 5-7 minutes after urination. He has been unable to tolerate p.o. intake or much fluids. Patient denies any fevers, sweats or chills. He denies any lightheadedness or dizziness. WBC= 15K. Cr= 3.2 from 1.4-1.6 baseline. He is afebrile, slightly lower BP ~90/60 initially, however increased likely due to pain and gentle fluids in the 140s-150s/ 90. The patient was administered morphine 6 mg at bedside however received no pain relief with this medication. Past Medical/Surgical History Medical Problems: (1) CAD (coronary artery disease) (2) CKD (chronic kidney disease) stage 3, GFR 30-59 ml/min (3) CVA (cerebral vascular accident) (4) GERD (gastroesophageal reflux disease) (5) Intractable pain (6) Small bowel obstruction due to adhesions (7) UTI (urinary tract infection) (8) Vertebral artery occlusion Surgical Problems: (1) Hx of cholecystectomy Family History Diabetes mellitus FH: heart disease FHx: lung disease Hypertension Social History Smoking Status: Never Smoker Drug Use: none Marital Status: Housing status: lives with family Occupational Status: retired Immunizations History of Influenza Vaccine: Yes Influenza Vaccine Date: Sep 03, 2011 History of Tetanus Vaccine?: Yes History of Pneumococcal: Yes Pneumococcal Date: Sep 23, 2006 History of Hepatitis B Vaccine: No Allergies Coded Allergies: Clopidogrel (Verified Allergy, Severe, SHORTNESS OF BREATH, 02/07/18) Meperidine (Verified Allergy, Severe, DIFFICULTY BREATHING, 02/07/18) Unclassified Drugs (Verified Allergy, Unknown, NEOPRENE - RASH, 02/07/18) DENIES LATEX ALLERGY Home Medications Scheduled Ascorbic Acid (Vitamin C), PO DAILY Ciprofloxacin Hcl (Cipro), 500 MG PO BID Cyclosporine (Ophth) (Restasis), 1 DROP OPB BID Dipyridamole/Aspirin (Aggrenox 25-200 mg), 1 CAP PO BID Esomeprazole Magnesium (Nexium), 1 CAP PO QAM Nitroglycerin (Nitrostat), 0.4 MG UT PRN Simvastatin (Zocor), 1 TAB PO QPM Zinc (Zinc), 50 MG PO QAM Review of Systems Constitutional: No fever, sweats or chills Eyes: No diplopia, no worsening or blurred vision ENT: normal hearing, no trouble swallowing Respiratory: No cough, sputum, dyspnea at rest or on exertion Cardiovascular: No chest pain, tightness or palpitations Abdomen: poor appetite, + Suprapubic pain, No nausea, vomiting, diarrhea, + constipation, last BM was on 02/02 Musculoskeletal: No joint pain, calf pain, swelling Neurologic: No weakness, numbness/tingling, or balance problems Psychiatric: No anxiety or depression Skin: No rash or itch Physical Exam Vital Signs Date Time Temp Pulse Resp B/P (MAP) Pulse Ox O2 Delivery O2 Flow Rate FiO2 02/07/18 15:05 75 17 93/65 95 Room Air 02/07/18 14:07 36.3 97 20 93/66 94 Room Air General: awake, alert, +moderate distress Head: Normocephalic, atraumatic ENT: PERRL, EOMI, no pharyngeal exudate, mucous membranes moist Chest: Clear to auscultation, on room air, no adventitious breath sounds Cardiac: Slightly tachycardic, no murmur, no JVD, normal peripheral pulses, good capillary refill Abdominal: NABS x 4 quadrants, soft, + tender to palpation in suprapubic region , no rebound, guarding or tenderness Extremities: Normal inspection, no peripheral edema or erythema, calfs nontender to palpation Psych: Normal mood and affect Neuro: AAO x 3, strength intact bilaterally and related 5/5, no motor deficits, speech is clear, no peripheral sensory deficits Diagnostics Laboratory Results Results Past 24 Hours Test 02/07/18 14:34 02/07/18 15:18 Range/Units White Blood Count 15.75 4.8-10.8 K/uL Red Blood Count 4.85 4.7-6.1 M/uL Hemoglobin 16.3 14.0-18.0 g/dL Hematocrit 44.1 42-52 % Mean Corpuscular Volume 90.9 80-100 fL Mean Corpuscular Hemoglobin 33.6 25-34 pg Mean Corpuscular Hemoglobin Concent 37.0 32-36 g/dl Platelet Count 171 130-400 K/uL Mean Platelet Volume 10.8 7.4-10.4 fL Neutrophils (%) (Auto) 68.3 % Lymphocytes (%) (Auto) 15.5 % Monocytes (%) (Auto) 13.5 % Eosinophils (%) (Auto) 1.7 % Basophils (%) (Auto) 0.1 % Neutrophils # (Auto) 10.75 1.4-6.5 K/uL Lymphocytes # (Auto) 2.44 1.2-3.4 K/uL Monocytes # (Auto) 2.13 0.11-0.59 K/uL Eosinophils # (Auto) 0.27 0-0.5 K/uL Basophils # (Auto) 0.02 0-0.2 K/uL RDW Standard Deviation 41.0 36.4-46.3 fL RDW Coefficient of Variation 12.4 11.5-14.5 % Immature Granulocyte % (Auto) 0.9 % Immature Granulocyte # (Auto) 0.14 0.00-0.02 K/uL Prothrombin Time 10.0 9.0-12.0 SECONDS Prothromb Time International Ratio 1.0 0.9-1.1 Activated Partial Thromboplast Time 27.7 21.0-31.0 SECONDS Partial Thromboplastin Ratio 1.1 Urine Color ORANGE Urine Appearance TURBID CLEAR Urine pH 4.5-7.5 Urine Specific [place] 1.013 1.000-1.030 Urine Protein NEG Urine Glucose (UA) NEG Urine Ketones NEG Urine Occult Blood NEG Urine Nitrite NEG Urine Bilirubin NEG Urine Urobilinogen NEG Urine Leukocyte Esterase NEG Urine RBC >30 0-4 /hpf Urine WBC 5-10 0-5 /hpf Urine Epithelial Cells 5-10 0-5 /lpf Urine Bacteria 1+ NEG Sodium Level 130 136-145 mmol/L Potassium Level 4.0 3.5-5.1 mmol/L Chloride Level 98 98-107 mmol/L Carbon Dioxide Level 22 21-32 mmol/L Anion Gap 10.0 3-11 mmol/L Blood Urea Nitrogen 42 7-18 mg/dl Creatinine 3.20 0.60-1.40 mg/dl Est Creatinine Clear Calc Drug Dose 19.4 ml/min Estimated GFR () 20.7 Estimated GFR (Non- 17.8 BUN/Creatinine Ratio 13.1 10-20 Random Glucose 109 70-99 mg/dl Calcium Level 9.0 8.5-10.1 mg/dl Total Bilirubin 1.5 0.2-1 mg/dl Aspartate Amino Transf (AST/SGOT) 12 15-37 U/L Alanine Aminotransferase (ALT/SGPT) 25 12-78 U/L Alkaline Phosphatase 115 45-117 U/L Total Protein 7.6 6.4-8.2 gm/dl Albumin 3.9 3.4-5.0 gm/dl Globulin 3.7 2.5-4.0 gm/dl Albumin/Globulin Ratio 1.1 0.9-2 Lipase 207 73-393 U/L Microbiology Results 02/07/18 Blood Culture, Ordered Pending 02/07/18 Blood Culture, Received Pending 02/07/18 Urine Culture, Received Pending Diagnostic Radiology SINGLE VIEW CHEST CLINICAL HISTORY: Generalized abdominal pain. FINDINGS: An AP, portable, upright chest radiograph is compared to study dated 09/12/2017. Correlation is made with chest CT dated 10/09/2011. The examination is degraded by portable technique and patient rotation. The patient is status post midline sternotomy. The heart is top normal for projection. The pulmonary vasculature is noncongested. Chronic interstitial thickening is unchanged. No airspace consolidation or large pleural effusion is identified. No pneumothorax is seen. The skeletal structures are osteopenic. The bony thorax is grossly intact. IMPRESSION: No acute cardiopulmonary abnormality. Electronically signed by: Fausto Childress M.D. 02/07/2018 2:50 PM Dictated Date/Time: 02/07/2018 2:49 PM The status of this report is Signed. ABD/PELVIS WITHOUT FOR STONE CLINICAL HISTORY: 77 years-old Male presenting with EVALUATE FLANK PAIN/HEMATURIA. TECHNIQUE: Multidetector CT of the abdomen and pelvis was performed without the use of intravenous contrast. IV contrast: None. A dose lowering technique was used consistent with the principles of ALARA (as low as reasonably achievable). COMPARISON: 04/30/2014. CT DOSE (mGy.cm): The estimated cumulative dose is 340.39 mGy.cm. 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 Cholecystectomy clips. Gaseous distended bowel. Lung bases: Minimal basilar opacities, likely atelectasis. Normal heart size. No pericardial or pleural effusion. Liver: Normal morphology. Normal density. Biliary: No gross biliary ductal dilatation allowing for noncontrast technique. Gallbladder surgically absent. Pancreas: Mild parenchymal atrophy. Spleen: Normal noncontrast appearance. Adrenal glands: Normal noncontrast appearance. Kidneys and ureters: Normal noncontrast appearance. Nonspecific mild perinephric fat stranding. No nephrolithiasis. No hydronephrosis. Normal ureters. Bladder: Mild circumferential bladder wall thickening. Perivesicular fat infiltration in the space of Retzius. Pelvic organs: Prostate and seminal vesicles normal. Few prostatic calcifications noted. Bowel: Fluid in the colon could suggest a diarrheal state. Few scattered colonic diverticula. The appendix is not visualized. Small hiatal hernia. Multiple duodenal diverticula. Mild distention of proximal small bowel without a transition point to suggest obstruction. Peritoneal cavity: No free fluid or intraperitoneal gas. Extensive retroperitoneal and extraperitoneal pelvic fluid most pronounced in the presacral space and space of Retzius. This does not appear to arise from the pancreas or kidneys and is primarily pelvic. Lymph nodes: Few scattered subcentimeter retroperitoneal lymph nodes, likely reactive. Vasculature: Atherosclerosis of the normal caliber abdominal aorta. Abdominal wall: Evidence of postsurgical changes in the ventral midline abdomen. No associated fluid. Musculoskeletal: Degenerative changes of the spine. Bilateral pars defects of L5. IMPRESSION: 1. Nonspecific retroperitoneal and extraperitoneal pelvic fluid/inflammatory change. This is primarily centered in the pelvis. Etiology of this is not clear. This may originate from the bladder. Correlate with urinalysis to exclude infectious cystitis. Circumferential bladder wall thickening could also suggest cystitis or be secondary to chronic bladder outlet obstruction. No nephrolithiasis or ureteral calculi. The examination is limited due to noncontrast technique. Close clinical and imaging follow-up recommended. Electronically signed by: Collin Dunaway M.D. 02/07/2018 3:02 PM Dictated Date/Time: 02/07/2018 2:53 PM The status of this report is Signed. Impression Assessment and Plan This is a 77 yo M with PMHx of CAD s/p CABG 1, HLD, vertebral artery stenosis/ occlusion, history of CVA, GERD, CKD, small bowel obstruction s/p repair of incisional hernia and lysis of adhesions Aug 2017, who underwent cystoscopy with bilateral retrograde pyelogram and TURBT, two tumors identified and biopsied, on 02/[address] Basilio. UTI S/p cystoscopy with bilateral retrograde pyelogram and TURBT -Admit the patient to MedSurg -Cefepime IV q8h, awaiting UCx and BCx, UA, grossly turbid, 1+ bacteria -Pain control with Dilaudid 0.5 mg IV and 1.0 mg IV as morphine did not seem to reduce the patient's pain at all in the ER -NSS at 100ml/hr x 1 day -CT of the abdomen reviewed-there is nonspecific retroperitoneal and extraperitoneal pelvic fluid/inflammatory change likely due to infectious cystitis or be secondary to chronic bladder outlet obstruction. No stones. -Urology has evaluated the patient in the ER, Dr. Sanchez front counter clerk this weekend: No Moralez insertion at this time. -Follow-up biopsy pathology report Hx CVA -Continue on Aggrenox daily CAD s/p CABG x 1 HLD -Continue on simvastatin 20 mg daily, patient follows with Dr. Yi GERD -Can hold Nexium and will change to pantoprazole during admission DVT prophylaxis: On Aggrenox, no mechanical DVT at this time as patient is ambulatory CODE STATUS: Full code Disposition: Patient from home, lives with , no case management needs anticipated Resuscitation Status VTE Prophylaxis Will order VTE Prophylaxis: No Reason for no VTE drug order: Contraindicated Reason no Mechanical VTE Order: Treatment not indicated Reviewed: Pt Seen/Exam by Me History Pt had a cytoscopy with urology on 02/03. Ongoing pain and blood in urine since that time and getting worse. called urology office today and was directed to the ED for further work-up. Pt is more comfortable from a pain aspect and is more tired than anything. Tolerating PO without issue. Denies chest pain, SOB. Agree with HPI/ROS as noted by PA. General Appearance: WD/WN, no apparent distress Eye Exam: bilateral eye normal inspection, bilateral eye other (nml sclera) Respiratory: normal breath sounds, no respiratory distress Cardiovascular: normal peripheral pulses, regular rate, rhythm Gastrointestinal: soft, tenderness (to minimal palpation) Extremities: non-tender, no pedal edema Neurologic/Psychiatric: alert (but groggy s/p pain medications), oriented x 3 Skin Characteristics: normal color, warm/dry Assessment/Plan Agree with plan as outlined above UTI s/p cystoscopy abx, IVF monitor urology c/s pending Called by nursing once pt arrived to floor BP had been 150s systolic during my exam, however pt dropped to 60s IVF had not been hung yet Verbal for 500cc bolus and 75cc/hr after bolus is upset regarding procedure as she feels it was "unnecessary because he isn't sick". I did discuss at length with the pt, and then again with the son who was not in the room initially, the reasoning for procedures related to abn bladder findings in asx pts.
[2018-02-07] MEDS ORDERED: NITROGLYCERIN 0.4 MG SL PER TAB CHARGE UT SCH (16:15)
[2018-02-07] MEDS ORDERED: POLYETHYLENE (MIRALAX) 17 GM PACK PO PRN (16:15)
[2018-02-07] MEDS ORDERED: HYDROmorphone INJ 1 MG/ML SYR IV PRN (16:15)
[2018-02-07] MEDS ORDERED: ONDANSETRON INJ 2 MG/ML 2 ML VIAL IV PRN (16:15)
[2018-02-07] MEDS ORDERED: CEFEPIME IV 1,000 MG in DEXTROSE 5% 100ML 100 ML IV SCH (16:15)
[2018-02-07] MEDS ORDERED: HYDROmorphone INJ 0.5 MG/0.5 ML SYR IV PRN (16:15)
[2018-02-07] MEDS ORDERED: ACETAMINOPHEN 325 MG TAB PO PRN (16:15)
[2018-02-07] MEDS ORDERED: HYDROmorphone INJ 1 MG/ML SYR ONE (16:32)
[2018-02-07] MEDS ORDERED: NURSING VERBAL MED ORDER ONE (18:30)
[2018-02-07] MEDS: SODIUM CHLORIDE 0.9% 1000ML 1,000 ML IV SCH (18:59)
[2018-02-07] MEDS ORDERED: SODIUM CHLORIDE 0.9% 500ML 500 ML IV SCH (19:00)
[2018-02-07] MEDS ORDERED: BISACODYL 10 MG SUPP PR STA (19:53)
[2018-02-07] MEDS ORDERED: PHENAZOPYRIDINE HCL 200 MG TAB PO PRN (20:00)
[2018-02-07] MEDS ORDERED: BISACODYL 10 MG SUPP PR PRN (20:00)
[2018-02-07] MEDS ORDERED: PHENAZOPYRIDINE HCL 200 MG TAB PO STA (20:01)
[2018-02-07] MEDS: DIPYRIDAMOLE/ASPIRIN CAP PO SCH (20:24)
[2018-02-07] MEDS: CYCLOSPORINE SCH (20:24)
[2018-02-07] MEDS: SIMVASTATIN 40 MG TAB PO SCH (20:25)
[2018-02-07] MEDS: CEFEPIME IV 1,000 MG in SYRINGE 0 ML IV SCH (20:28)
[2018-02-08] VITALS: O2SAT 95
[2018-02-08] MEDS ORDERED: LIDOCAINE HCL 2% JELLY 30 ML TUBE EXT ONE (00:18)
[2018-02-08] MEDS ORDERED: LIDOCAINE HCL 2% JELLY 30 ML TUBE EXT PRN (00:30)
[2018-02-08] MEDS ORDERED: NURSING VERBAL MED ORDER ONE (00:30)
[2018-02-08 06:25] LABS: BASO % 0.1 %; BASO ABS # 0.01 K/uL (0-0.2); EOS ABS # 0.15 K/uL (0-0.5); HEMATOCRIT 36.8 % (42-52); HEMOGLOBIN 12.8 g/dL (14.0-18.0); IG# 0.07 K/uL (0.00-0.02); LYMPH % 14.1 %; LYMPH ABS # 1.04 K/uL (1.2-3.4); MEAN CELL VOLUME 93.9 fL (80-100); MEAN CORPUSCULAR HEMOGLOBIN 32.7 pg (25-34); MEAN CORPUSCULAR HGB CONC 34.8 g/dl (32-36); NEUT % 67.8 %; NEUT ABS # 4.98 K/uL (1.4-6.5); PLATELET COUNT 111 K/uL (130-400); RED CELL DISTRIBUTION WIDTH CV 12.8 % (11.5-14.5); RED CELL DISTRIBUTION WIDTH SD 43.6 fL (36.4-46.3); WHITE BLOOD COUNT 7.35 K/uL (4.8-10.8)
[2018-02-08 06:29] LABS: CALCIUM 7.8 mg/dl (8.5-10.1); CREATININE 3.07 mg/dl (0.60-1.40); POTASSIUM 4.4 mmol/L (3.5-5.1)
[2018-02-08 07:12] VITALS: BP 105/69; PULSE 88; TEMP 36.8; O2SAT 93
[2018-02-08] MEDS: ASCORBIC ACID 500 MG TAB PO SCH (07:37)
[2018-02-08] MEDS: PANTOprazole SOD 40 MG TAB PO SCH (07:37)
[2018-02-08] MEDS: DIPYRIDAMOLE/ASPIRIN CAP PO SCH ×2 (07:37→20:51)
[2018-02-08] MEDS: SODIUM CHLORIDE 0.9% 1000ML 1,000 ML IV SCH ×2 (07:41→20:51)
[2018-02-08] MEDS: CYCLOSPORINE SCH ×2 (07:43→20:52)
[2018-02-08 08:00] VITALS: O2SAT 95
--- NOTE | 2018-02-08 12:43 | Progress Note ---
Subjective Date of Service: Feb 08, 2018. Subjective Pt evaluation today including: conversation w/ patient, physical exam, chart review, lab review Voiding: franco catheter in place Pt developed retention overnite and feels much better w pyridium tinged urine today. He is sore but minimal pain and not requiring pain meds . More gas but no bm . Appetite back . Wbc now normal . Problem List Medical Problems: (1) Abdominal pain Status: Acute (2) Acute renal failure Status: Acute (3) Acute renal failure Status: Acute (4) Ambulatory dysfunction Status: Acute (5) Cystitis Status: Acute (6) Dehydration Status: Acute (7) Dehydration Status: Acute (8) Dizziness Status: Acute (9) Vertigo Status: Acute Social History Problems: (1) Status post cystoscopy Status: Acute Objective Vital Signs Date Time Temp Pulse Resp B/P (MAP) Pulse Ox O2 Delivery O2 Flow Rate FiO2 02/08/18 08:00 95 Room Air 02/08/18 07:12 36.8 88 16 105/69 (81) 93 Room Air 02/08/18 00:00 95 Room Air 02/07/18 23:19 36.3 80 16 103/63 (76) 95 Room Air 02/07/18 21:32 99/62 (74) 02/07/18 20:07 85/50 (62) 02/07/18 19:56 Nasal Cannula 2.0 02/07/18 19:29 70 81/48 (59) 97 Nasal Cannula 3.0 02/07/18 18:18 68 65/39 (48) 95 Nasal Cannula 3.0 02/07/18 18:17 68/34 (45) 02/07/18 17:21 36.6 75 18 88/54 95 Nasal Cannula 2.0 02/07/18 17:01 82 17 110/60 97 Nasal Cannula 3.0 02/07/18 16:41 84 02/07/18 16:37 86 16 151/88 94 Room Air 02/07/18 16:33 84 17 152/95 96 Room Air 02/07/18 16:14 95 20 173/115 99 Room Air 02/07/18 15:56 84 18 148/94 96 Room Air 02/07/18 15:05 75 17 93/65 95 Room Air 02/07/18 14:07 36.3 97 20 93/66 94 Room Air Laboratory Results Last 24 Hours Test 02/07/18 14:34 02/07/18 16:20 02/08/18 05:55 White Blood Count 15.75 K/uL 7.35 K/uL Red Blood Count 4.85 M/uL 3.92 M/uL Hemoglobin 16.3 g/dL 12.8 g/dL Hematocrit 44.1 % 36.8 % Mean Corpuscular Volume 90.9 fL 93.9 fL Mean Corpuscular Hemoglobin 33.6 pg 32.7 pg Mean Corpuscular Hemoglobin Concent 37.0 g/dl 34.8 g/dl Platelet Count 171 K/uL 111 K/uL Mean Platelet Volume 10.8 fL 10.0 fL Neutrophils (%) (Auto) 68.3 % 67.8 % Lymphocytes (%) (Auto) 15.5 % 14.1 % Monocytes (%) (Auto) 13.5 % 15.0 % Eosinophils (%) (Auto) 1.7 % 2.0 % Basophils (%) (Auto) 0.1 % 0.1 % Neutrophils # (Auto) 10.75 K/uL 4.98 K/uL Lymphocytes # (Auto) 2.44 K/uL 1.04 K/uL Monocytes # (Auto) 2.13 K/uL 1.10 K/uL Eosinophils # (Auto) 0.27 K/uL 0.15 K/uL Basophils # (Auto) 0.02 K/uL 0.01 K/uL RDW Standard Deviation 41.0 fL 43.6 fL RDW Coefficient of Variation 12.4 % 12.8 % Immature Granulocyte % (Auto) 0.9 % 1.0 % Immature Granulocyte # (Auto) 0.14 K/uL 0.07 K/uL Prothrombin Time 10.0 SECONDS Prothromb Time International Ratio 1.0 Activated Partial Thromboplast Time 27.7 SECONDS Partial Thromboplastin Ratio 1.1 Urine Color ORANGE Urine Appearance TURBID Urine pH Urine Specific [place] 1.013 Urine Protein Urine Glucose (UA) Urine Ketones Urine Occult Blood Urine Nitrite Urine Bilirubin Urine Urobilinogen Urine Leukocyte Esterase Urine RBC >30 /hpf Urine WBC 5-10 /hpf Urine Epithelial Cells 5-10 /lpf Urine Bacteria 1+ Sodium Level 130 mmol/L 139 mmol/L Potassium Level 4.0 mmol/L 4.4 mmol/L Chloride Level 98 mmol/L 108 mmol/L Carbon Dioxide Level 22 mmol/L 24 mmol/L Anion Gap 10.0 mmol/L 7.0 mmol/L Blood Urea Nitrogen 42 mg/dl 44 mg/dl Creatinine 3.20 mg/dl 3.07 mg/dl Est Creatinine Clear Calc Drug Dose 19.4 ml/min 20.3 ml/min Estimated GFR () 20.7 21.7 Estimated GFR (Non- 17.8 18.8 BUN/Creatinine Ratio 13.1 14.3 Random Glucose 109 mg/dl 84 mg/dl Calcium Level 9.0 mg/dl 7.8 mg/dl Total Bilirubin 1.5 mg/dl Aspartate Amino Transf (AST/SGOT) 12 U/L Alanine Aminotransferase (ALT/SGPT) 25 U/L Alkaline Phosphatase 115 U/L Total Protein 7.6 gm/dl Albumin 3.9 gm/dl Globulin 3.7 gm/dl Albumin/Globulin Ratio 1.1 Lipase 207 U/L Lactic Acid Level 2.1 mmol/L Assessment and Plan possibly home in am pending creatinine which was high as baseline awaiting culture results Continued [facility] stay due to: voiding difficulties, multiple IV medications needed Discharge planning: home
[2018-02-08 15:39] VITALS: BP 106/66; PULSE 86; TEMP 36.8; O2SAT 94
--- NOTE | 2018-02-08 16:27 | Family Medicine Progress Note ---
Progress Note Date of Service Feb 08, 2018. Subjective Pt evaluation today including: conversation w/ patient, conversation w/ family , physical exam Pain: Reports much improved from 02/07; has not needed pain meds since last night PO Intake: Tolerating well Voiding: franco catheter in place Patient reports he feels much better than yesterday. He is anxious to get home. Constitutional: No fever, No chills Cardiovascular: No chest pain, No edema Abdomen: + pain Male : + urinary frequency, + nocturia more than once/night, + hematuria All Other Systems: Reviewed and Negative Medications Current Inpatient Medications Medications (Trade) Dose Ordered Sig/Robin Route Start Time Stop Time Status Last Admin Dose Admin Acetaminophen (Tylenol Tab) 650 mg Q4H PRN PO 02/07/18 16:15 03/09/18 16:14 Polyethylene (Miralax Powder Packet) 17 gm DAILY PRN PO 02/07/18 16:15 03/09/18 16:14 Ondansetron HCl (Zofran Inj) 4 mg Q6H PRN IV 02/07/18 16:15 03/09/18 16:14 Hydromorphone HCl (Dilaudid Inj) 0.5 mg Q2H PRN IV 02/07/18 16:15 02/21/18 16:14 02/07/18 23:39 0.5 MG Hydromorphone HCl (Dilaudid Inj) 1 mg Q4H PRN IV 02/07/18 16:15 02/21/18 16:14 Dipyridamole/ Aspirin (Aggrenox 200MG/ 25MG Cap) 1 cap BID PO 02/07/18 21:00 03/09/18 20:59 02/08/18 07:37 1 CAP Nitroglycerin (Nitrostat Tab) 0.4 mg PRN UT 02/07/18 16:15 03/09/18 16:14 Simvastatin (Zocor Tab) 40 mg QPM PO 02/07/18 21:00 03/09/18 20:59 02/07/18 20:25 40 MG Miscellaneous Information (Order Awaiting Action) 1 ea BID N/A 02/07/18 21:00 03/09/18 20:59 Ascorbic Acid (Vitamin C Tab) 1,000 mg QAM PO 02/08/18 09:00 03/10/18 08:59 02/08/18 07:37 1,000 MG Pantoprazole Sodium (Protonix Tab) 40 mg QAM PO 02/08/18 09:00 03/10/18 08:59 02/08/18 07:37 40 MG Sodium Chloride 1,000 ml @ 75 mls/hr [id number] IV 02/07/18 19:30 03/09/18 19:29 02/08/18 07:41 75 MLS/HR Cefepime HCl 1000 mg/Syringe 11 ml @ 5.5 mls/min Q24H IV 02/07/18 20:00 02/17/18 19:59 02/07/18 20:28 5.5 MLS/MIN Phenazopyridine HCl (Pyridium Tab) 200 mg TID PRN PO 02/07/18 20:00 03/09/18 19:59 02/08/18 07:37 200 MG Bisacodyl (Dulcolax Supp) 10 mg [id number] PRN ME 02/07/18 20:00 03/09/18 19:59 Lidocaine HCl (Xylocaine Jelly 2%) 1 ml DAILY PRN EXT 02/08/18 00:30 03/10/18 00:29 Objective Vital Signs Date Time Temp Pulse Resp B/P (MAP) Pulse Ox O2 Delivery O2 Flow Rate FiO2 02/08/18 15:39 36.8 86 18 106/66 (79) 94 Room Air 02/08/18 08:00 95 Room Air 02/08/18 07:12 36.8 88 16 105/69 (81) 93 Room Air 02/08/18 00:00 95 Room Air 02/07/18 23:19 36.3 80 16 103/63 (76) 95 Room Air 02/07/18 21:32 99/62 (74) 02/07/18 20:07 85/50 (62) 02/07/18 19:56 Nasal Cannula 2.0 02/07/18 19:29 70 81/48 (59) 97 Nasal Cannula 3.0 02/07/18 18:18 68 65/39 (48) 95 Nasal Cannula 3.0 02/07/18 18:17 68/34 (45) 02/07/18 17:21 36.6 75 18 88/54 95 Nasal Cannula 2.0 02/07/18 17:01 82 17 110/60 97 Nasal Cannula 3.0 02/07/18 16:41 84 02/07/18 16:37 86 16 151/88 94 Room Air 02/07/18 16:33 84 17 152/95 96 Room Air Physical Exam General Appearance: WD/WN, no apparent distress Eyes: normal inspection, PERRL, EOMI ENT: hearing grossly normal Neck: supple, no JVD, no carotid bruits, trachea midline Respiratory/Chest: chest non-tender, lungs clear, normal breath sounds, no respiratory distress, no accessory muscle use Cardiovascular: regular rate, rhythm, no edema, no murmur Abdomen: normal bowel sounds, soft, + guarding, + tenderness Extremities: normal range of motion, non-tender, normal inspection, no pedal edema, no calf tenderness Neurologic/Psychiatric: riding instructor II-XII nml as tested, no motor/sensory deficits, alert, normal mood/affect, oriented x 3 Skin: normal color, warm/dry, no rash Laboratory Results Last Resulted 02/08/18 05:55 Red Blood Count 3.92, Mean Corpuscular Volume 93.9, Mean Corpuscular Hemoglobin 32.7, Mean Corpuscular Hemoglobin Concent 34.8, Mean Platelet Volume 10.0, Neutrophils (%) (Auto) 67.8, Lymphocytes (%) (Auto) 14.1, Monocytes (%) (Auto) 15.0, Eosinophils (%) (Auto) 2.0, Basophils (%) (Auto) 0.1, Neutrophils # (Auto ) 4.98, Lymphocytes # (Auto) 1.04, Monocytes # (Auto) 1.10, Eosinophils # (Auto ) 0.15, Basophils # (Auto) 0.01 Last Resulted 02/08/18 05:55 Assessment and Plan This is a 77 yo M with PMHx of CAD s/p CABG 1, HLD, vertebral artery stenosis/ occlusion, history of CVA, GERD, CKD, small bowel obstruction s/p repair of incisional hernia and lysis of adhesions Aug 2017, who underwent cystoscopy with bilateral retrograde pyelogram and TURBT 02/03/18 with two tumors identified and biopsied by Dr. Basilio. UTI S/p cystoscopy with bilateral retrograde pyelogram and TURBT -Cefepime IV q8h -awaiting UCx (prelim: no growth) and BCx, UA, grossly turbid, 1+ bacteria -Pain control with Dilaudid 0.5 mg IV and 1.0 mg IV as morphine did not reduce the patient's pain in the ER -NSS at 100ml/hr x 1 day, then 75 ml/hr -CT of the abdomen reviewed: nonspecific retroperitoneal and extraperitoneal pelvic fluid/inflammatory change likely due to infectious cystitis or secondary to chronic bladder outlet obstruction. No stones. -Urology consulted, appreciate recs -Follow-up biopsy pathology report (not expected for another week) -Likely discharge tomorrow with 24 hrs of cipro if cr improves KIMBERLEY Cr today; 3.07 Baseline 1.49-1.65 Rehydrating with IVF Home tomorrow if improvement Hx CVA -Continue Aggrenox daily CAD s/p CABG x 1 HLD -Continue on simvastatin 20 mg daily, patient follows with Dr. Yi GERD -Can hold Nexium, change to pantoprazole during admission DVT prophylaxis: On Aggrenox, no mechanical DVT at this time as patient is ambulatory CODE STATUS: Full code Disposition: med/surg, discharge tomorrow Resident Tracking Resident Involvement: Resident Care Provided Care Provided: Adult Hospital Medicine Reviewed: Pt Seen/Exam by Me History lower abdominal pain much better. Constitutional: denies: fever Respiratory: negative: short of breath Cardiovascular: denies chest pain General Appearance: no apparent distress Respiratory: lungs clear, no respiratory distress Cardiovascular: regular rate, rhythm Gastrointestinal: normal bowel sounds, non tender, soft Neurologic/Psychiatric: alert, oriented x 3 Skin Characteristics: warm/dry Assessment/Plan Resident Physician Supervision Note: I independently interviewed and examined the patient and verified the roth history and physical, reviewed labs and image studies, discussed the case with the resident Dr. Yanes and agree with the findings and care plan.
[2018-02-08] MEDS: CEFEPIME IV 1,000 MG in SYRINGE 0 ML IV SCH (19:57)
[2018-02-08] MEDS: SIMVASTATIN 40 MG TAB PO SCH (20:51)
[2018-02-08 23:25] VITALS: BP 111/68; PULSE 77; TEMP 36.8; O2SAT 95
--- NOTE | 2018-02-08 23:41 | Discharge Instructions ---
Discharge Instructions Date of Service Feb 08, 2018. Admission Reason for Admission: Intractable Pain, Uti Discharge Discharge Diagnosis / Problem: Cystitis Discharge Goals Goal(s): Decrease discomfort, Improve disease control, Therapeutic intervention Activity Recommendations Activity Limitations: per Instructions/Follow-up section . Instructions / Follow-Up Instructions / Follow-Up During this admission you were evaluated for severe bladder pain, blood in your urine, and urinary retention. You have been treated for an infection and should continue to take antibiotics for 3 days. Continue to take all of your other home medications. Follow up with your urology team as planned next Saturday for removal of your urinary catheter. As discussed with Dr. Sanchez, continue to drink lots of fluids. You do not need to continue taking pyridium, but it may help with your discomfort. You should discuss this at your appointment with urology on Saturday. We recommend you get in to see your primary care physician, Dr. Tolbert, within the next 7-10 days as well. If your symptoms return or persist, please follow up with your PCP or return to the ER. Current Hospital Diet Patient's current hospital diet: AHA Diet (Heart Healthy) Discharge Diet Recommended Diet: AHA Diet (Heart Healthy) Pending Studies Studies pending at discharge: no Medical Emergencies . Who to Call and When: Medical Emergencies: If at any time you feel your situation is an emergency, please call 911 immediately. . Non-Emergent Contact Non-Emergency issues call your: Primary Care Provider . . "Provider Documentation" section prepared by Rachell Yanes. .
[2018-02-09] MEDS ORDERED: CIPROFLOXACIN 500 MG TAB PO SCH
[2018-02-09 05:44] LABS: BASO % 0.3 %; BASO ABS # 0.02 K/uL (0-0.2); EOS % 6.8 %; EOS ABS # 0.44 K/uL (0-0.5); HEMATOCRIT 33.6 % (42-52); HEMOGLOBIN 11.3 g/dL (14.0-18.0); IG# 0.07 K/uL (0.00-0.02); LYMPH % 24.6 %; LYMPH ABS # 1.59 K/uL (1.2-3.4); MEAN CELL VOLUME 96.6 fL (80-100); MEAN CORPUSCULAR HEMOGLOBIN 32.5 pg (25-34); MEAN CORPUSCULAR HGB CONC 33.6 g/dl (32-36); MEAN PLATELET VOLUME 10.5 fL (7.4-10.4); MONO % 13.6 %; MONO ABS # 0.88 K/uL (0.11-0.59); NEUT % 53.6 %; NEUT ABS # 3.46 K/uL (1.4-6.5); PLATELET COUNT 108 K/uL (130-400); RED CELL DISTRIBUTION WIDTH CV 12.9 % (11.5-14.5); WHITE BLOOD COUNT 6.46 K/uL (4.8-10.8)
[2018-02-09 06:08] LABS: CALCIUM 7.9 mg/dl (8.5-10.1); CREATININE 1.71 mg/dl (0.60-1.40); POTASSIUM 4.3 mmol/L (3.5-5.1)
[2018-02-09] MEDS: CYCLOSPORINE SCH (06:58)
[2018-02-09 07:19] VITALS: BP 111/70; PULSE 73; TEMP 37; O2SAT 94
[2018-02-09] MEDS: DIPYRIDAMOLE/ASPIRIN CAP PO SCH (07:55)
[2018-02-09] MEDS: PANTOprazole SOD 40 MG TAB PO SCH (07:55)
[2018-02-09] MEDS: ASCORBIC ACID 500 MG TAB PO SCH (07:55)
--- NOTE | 2018-02-09 08:35 | Progress Note ---
Subjective Date of Service: Feb 09, 2018. Subjective Pt evaluation today including: conversation w/ patient, physical exam, lab review, conversation w/ licensed tax consultant pt feels well. Urine clear. spoke w licensed tax consultant and will d/c today .Pt will go w leg bag and f/u w Dr. Basilio Saturday Problem List Medical Problems: (1) Abdominal pain Status: Acute (2) Acute renal failure Status: Acute (3) Acute renal failure Status: Acute (4) Ambulatory dysfunction Status: Acute (5) Cystitis Status: Acute (6) Dehydration Status: Acute (7) Dehydration Status: Acute (8) Dizziness Status: Acute (9) Vertigo Status: Acute Social History Problems: (1) Status post cystoscopy Status: Acute Objective Vital Signs Date Time Temp Pulse Resp B/P (MAP) Pulse Ox O2 Delivery O2 Flow Rate FiO2 02/09/18 07:19 37.0 73 18 111/70 (84) 94 Room Air 02/08/18 23:45 Room Air 02/08/18 23:25 36.8 77 14 111/68 (82) 95 Room Air 02/08/18 15:39 36.8 86 18 106/66 (79) 94 Room Air 02/08/18 15:15 Room Air Physical Exam Abdomen: non tender, soft Laboratory Results Last 24 Hours Test 02/09/18 05:05 White Blood Count 6.46 K/uL Red Blood Count 3.48 M/uL Hemoglobin 11.3 g/dL Hematocrit 33.6 % Mean Corpuscular Volume 96.6 fL Mean Corpuscular Hemoglobin 32.5 pg Mean Corpuscular Hemoglobin Concent 33.6 g/dl Platelet Count 108 K/uL Mean Platelet Volume 10.5 fL Neutrophils (%) (Auto) 53.6 % Lymphocytes (%) (Auto) 24.6 % Monocytes (%) (Auto) 13.6 % Eosinophils (%) (Auto) 6.8 % Basophils (%) (Auto) 0.3 % Neutrophils # (Auto) 3.46 K/uL Lymphocytes # (Auto) 1.59 K/uL Monocytes # (Auto) 0.88 K/uL Eosinophils # (Auto) 0.44 K/uL Basophils # (Auto) 0.02 K/uL RDW Standard Deviation 45.0 fL RDW Coefficient of Variation 12.9 % Immature Granulocyte % (Auto) 1.1 % Immature Granulocyte # (Auto) 0.07 K/uL Sodium Level 138 mmol/L Potassium Level 4.3 mmol/L Chloride Level 108 mmol/L Carbon Dioxide Level 25 mmol/L Anion Gap 5.0 mmol/L Blood Urea Nitrogen 26 mg/dl Creatinine 1.71 mg/dl Est Creatinine Clear Calc Drug Dose 36.4 ml/min Estimated GFR () 44.1 Estimated GFR (Non- 38.0 BUN/Creatinine Ratio 15.5 Random Glucose 87 mg/dl Calcium Level 7.9 mg/dl Assessment and Plan home w franco and leg bag and f/u w Dr. Praful No for 3 days Continued [facility] stay due to: voiding difficulties, multiple IV medications needed Discharge planning: home
[2018-02-09] MEDS ORDERED: CIPR-255 PO (08:58)
[2018-02-09] MEDS ORDERED: CIPROFLOXACIN 500 MG TAB PO ONE (09:15)
[2018-02-09 10:04] VITALS: BP 111/70; PULSE 73; TEMP 37; O2SAT 94
--- NOTE | 2018-02-09 12:57 | Discharge Summary ---
Discharge Summary Date of Service Feb 09, 2018. Discharge Summary Admission Date: Feb 07, 2018 at 16:11 Discharge Date: Feb 09, 2018 Discharge Disposition: Home Principal Diagnosis: Cystitis, urinary retention Problems/Secondary Diagnoses: UTI KIMBERLEY CKD Baseline Cr 1.5-1.7 Hx CVA CAD s/p CABG x 1 HLD GERD Immunizations: Have You Had Influenza Vaccine: Yes Influenza Vaccine Date: Sep 03, 2011 History of Tetanus Vaccine?: Yes History of Pneumococcal: Yes Pneumococcal Date: Sep 23, 2006 History of Hepatitis B Vaccine: No Consultations: Urology Medication Reconciliation New Medications: Ciprofloxacin Hcl (Cipro) 500 Mg Tab 500 MG PO BID for 2 Days, #4 TAB Continued Medications: Ascorbic Acid (Vitamin C) 1,000 Mg Tab PO DAILY Ciprofloxacin Hcl (Cipro) 500 Mg Tab 500 MG PO BID, TAB Cyclosporine (Ophth) (Restasis) 0.05 % Emu 1 DROP OPB BID, BTL Dipyridamole/Aspirin (Aggrenox 25-200 mg) 1 Cap Cap 1 CAP PO BID for 30 Days, #60 CAP 5 Refills Esomeprazole Magnesium (Nexium) 40 Mg Cap 1 CAP PO QAM for 30 Days, CAP 5 Refills Nitroglycerin (Nitrostat) 0.4 Mg Tab 0.4 MG UT PRN, BTL Simvastatin (Zocor) 40 Mg Tab 1 TAB PO QPM for 90 Days, #90 TAB 1 Refill Zinc (Zinc) 50 Mg Tab 50 MG PO QAM Discharge Exam ROS Constitutional: No fever, No chills Cardiovascular: No chest pain, No edema Abdomen: + pain Male : + urinary frequency, + nocturia more than once/night, + hematuria All Other Systems: Reviewed and Negative PE General Appearance: WD/WN, no apparent distress Eyes: normal inspection, PERRL, EOMI ENT: hearing grossly normal Neck: supple, no JVD, no carotid bruits, trachea midline Respiratory/Chest: chest non-tender, lungs clear, normal breath sounds, no respiratory distress, no accessory muscle use Cardiovascular: regular rate, rhythm, no edema, no murmur Abdomen: normal bowel sounds, soft, no tenderness Extremities: normal range of motion, non-tender, normal inspection, no pedal edema, no calf tenderness Neurologic/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 Basilio. 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 He was treated for suspected UTI/ cystitis with cefipime after finding grossly turbid urine with 1+ bacteria on UA , and a franco catheter was inserted. He was given IVF for an KIMBERLEY with Cr of 3.2. He responded well to the antibiotics which improved his WBC to a normal level, and his renal function returned to his baseline. He will be discharged on cipro 500 BID x 3 days, and is expected to be seen by Dr. Basilio of urology on Saturday, February 12 for franco removal. UTI S/p cystoscopy with bilateral retrograde pyelogram and TURBT -Cefepime x 24 hrs completed -UCx and Blood culture with no growth, UA, grossly turbid, 1+ bacteria -CT of the abdomen reviewed: nonspecific retroperitoneal and extraperitoneal pelvic fluid/inflammatory change likely due to infectious cystitis or secondary to chronic bladder outlet obstruction. No stones. -Follow-up biopsy pathology report (not expected for another week per patient) KIMBERLEY Cr 3.2--3.07-1.7 Baseline 1.49-1.65 Consider follow up BMP if deemed necessary Hx CVA, CAD s/p CABG x 1, HLD -Continue Aggrenox daily -Continue on simvastatin 20 mg daily, patient follows with Dr. Yi GERD -Continue Nexium Total Time Spent: Greater than 30 minutes This includes examination of the patient, discharge planning, medication reconciliation, and communication with other providers. Discharge Instructions Please refer to the electronic Patient Visit Report (Discharge Instructions) for additional information. Additional Copies To Blaine Tolbert D.O.; Yoan Basilio II., DO Resident Tracking Resident Involvement: Resident Care Provided Care Provided: Adult Hospital Medicine Reviewed: Pt Seen/Exam by Wy History no abdominal/flank pain Constitutional: denies: fever Respiratory: negative: short of breath Cardiovascular: denies chest pain General Appearance: no apparent distress Respiratory: lungs clear, no respiratory distress Cardiovascular: regular rate, rhythm Neurologic/Psychiatric: alert, oriented x 3 Skin Characteristics: warm/dry Assessment/Plan Resident Physician Supervision Note: I independently interviewed and examined the patient and verified the roth history and physical, reviewed labs and image studies, discussed the case with the resident Dr. Yanes and agree with the findings and care plan. Time spent in discharge 35 min
== END 2018-02-09 11:16 | disposition home or self-care (01) | DRG 690 ==
LOC: C.EDB 14:02 → C.MSN 16:11 → ENRESERV 16:51
PROVIDERS: ADMIT Family Medicine; ATTEND Family Medicine
DX: N39.0 Urinary tract infection, site not specified (principal); N17.9 Acute kidney failure, unspecified; N18.3 Chronic kidney disease, stage 3 (moderate); I25.10 Atherosclerotic heart disease of native coronary artery without angina pectoris; K21.9 Gastro-esophageal reflux disease without esophagitis; K59.00 Constipation, unspecified; Z79.899 Other long term (current) drug therapy; Z86.73 Personal history of transient ischemic attack (TIA), and cerebral infarction without residual deficits; Z88.8 Allergy status to other drugs, medicaments and biological substances; Z95.1 Presence of aortocoronary bypass graft

== ENCOUNTER 2018-06-22 12:36 | Emergency (ER) | payer BC ==
[~2018-06-22 12:36] MED LIST changes: -ASCO10003 PO; +OXYC7.5T65 PO; -PHEN-775 PO; +PHEN-876 PO; +VNTHFA/IN INH; -ZINC1CAP PO
[2018-06-22 12:39] VITALS: TEMP 36.4; Ht 175.3 cm
[2018-06-22] MEDS ORDERED: SODIUM CHLORIDE 0.9% 1000ML 1,000 ML IV STA (12:50)
[2018-06-22] MEDS ORDERED: HYDROmorphone INJ 1 MG/ML SYR IV STA (12:54)
[2018-06-22] MEDS ORDERED: MoRPHine SULFATE 4 MG/ML 1 ML CARP\\VIAL IV PRN (13:00)
[2018-06-22 13:21] LABS: BASO % 0.2 %; BASO ABS # 0.01 K/uL (0-0.2); EOS ABS # 0.17 K/uL (0-0.5); HEMATOCRIT 43.3 % (42-52); HEMOGLOBIN 15.3 g/dL (14.0-18.0); IG# 0.04 K/uL (0.00-0.02); LYMPH % 25.7 %; LYMPH ABS # 1.48 K/uL (1.2-3.4); MEAN CORPUSCULAR HEMOGLOBIN 33.6 pg (25-34); MEAN CORPUSCULAR HGB CONC 35.3 g/dl (32-36); MEAN PLATELET VOLUME 10.4 fL (7.4-10.4); MONO % 15.7 %; NEUT % 54.7 %; NEUT ABS # 3.15 K/uL (1.4-6.5); PLATELET COUNT 136 K/uL (130-400); RED CELL DISTRIBUTION WIDTH CV 12.3 % (11.5-14.5); RED CELL DISTRIBUTION WIDTH SD 42.1 fL (36.4-46.3); WHITE BLOOD COUNT 5.75 K/uL (4.8-10.8)
[2018-06-22 13:31] LABS: PTT PATIENT 26.6 SECONDS (21.0-31.0)
--- NOTE | 2018-06-22 13:39 | DIAGNOSTIC IMAGING REPORT ---
ABD/PELVIS NO IV OR ORAL CONT CT DOSE: 346.10 mGy.cm HISTORY: Pain. Nausea. ABDOMINAL PAIN/GI TECHNIQUE: Multiaxial CT images of the abdomen and pelvis were performed without contrast. A dose lowering technique was utilized adhering to the principles of ALARA. COMPARISON STUDY: 02/07/2018 FINDINGS: Lung bases are clear. Liver spleen and pancreas appear uniform. Prior cholecystectomy. Kidneys negative for hydronephrosis. Abdominal bowel pattern is nonobstructive. Moderate bladder wall thickening at its anterior and left lateral locations. Mild very cystic infiltrative change best seen transaxial image 70 superior to the left pubic ring. Cystitis must be considered. IMPRESSION: 1. Moderate bladder wall thickening left lateral and anterior aspect of the bladder associated with moderate localized pericystic infiltrative change. 2. Cystoscopy is recommended to exclude an inflammatory and/or potentially neoplastic process relating to the bladder. 3. Remainder the study is unremarkable postcholecystectomy. The above report was generated using voice recognition software. It may contain grammatical, syntax or spelling errors. Electronically signed by: John Suarez M.D. 06/22/2018 1:38 PM Dictated Date/Time: 06/22/2018 1:35 PM
[2018-06-22 13:42] LABS: BLOOD UREA NITROGEN 23 mg/dl (7-18); CREATININE 1.71 mg/dl (0.60-1.40); GLUCOSE 88 mg/dl (70-99); SODIUM 139 mmol/L (136-145)
[2018-06-22 13:43] LABS: ALBUMIN 4.2 gm/dl (3.4-5.0); ALKALINE PHOSPHATASE 306 U/L (45-117); ALT/SGPT 48 U/L (12-78); AST/SGOT 16 U/L (15-37); CALCIUM 9.6 mg/dl (8.5-10.1); CARBON DIOXIDE 25 mmol/L (21-32); LIPASE 109 U/L (73-393); POTASSIUM 4.1 mmol/L (3.5-5.1); TOTAL PROTEIN 8.1 gm/dl (6.4-8.2)
--- NOTE | 2018-06-22 14:46 | EMERGENCY ROOM VISIT NOTE ---
History Report prepared by Niki: Hailey Qureshi Under the Supervision of: Dr. Rhett Michelle D.O. First contact with patient: 12:43 Chief Complaint: GROIN PAIN Stated Complaint: PAIN R GROIN AREA History of Present Illness The patient is a 78 year old male who presents to the Emergency Room with complaints of constant groin pain that began shortly after the patient had surgery on June 05, 2018 for his bladder cancer. The patient states the pain also radiates down the back of his leg and into his testicles. He states that passing gas helps to alleviate his pain but otherwise nothing makes the pain worse. The patient reports that after surgery, he has experienced burning and increased urination which he did not experience prior to his surgery. He reports that he has also been constipated but states that he has been taking stool softeners. The patient states that he also has pain in his lower left abdominal region around his bladder. The patient has not seen his urologist since his surgery, but is scheduled to see the urologist in 2 days. The patient denies any nausea. Per , the patient has had chemotherapy for his cancer. The family reports the patient has only eaten a banana today. Source of History: patient, spouse/significant other Onset: June 05, 2018 Position: other (groin) Quality: other (pain) Timing: constant Modifying Factors (Relieving): other (passing out ) Associated Symptoms: + urinary symptoms (increased and burning urination), No nausea Note: additional symptom: constipation Review of Systems See HPI for pertinent positives & negatives. A total of 10 systems reviewed and were otherwise negative. Past Medical & Surgical Medical Problems: (1) Bladder cancer (2) CAD (coronary artery disease) (3) CKD (chronic kidney disease) stage 3, GFR 30-59 ml/min (4) CVA (cerebral vascular accident) (5) GERD (gastroesophageal reflux disease) (6) Intractable pain (7) Small bowel obstruction due to adhesions (8) UTI (urinary tract infection) (9) Vertebral artery occlusion Surgical Problems: (1) Hx of cholecystectomy Family History Diabetes mellitus FH: heart disease FHx: lung disease Hypertension Social History Smoking Status: Former Smoker Alcohol Use: none Drug Use: none Marital Status: Housing Status: lives with family Occupation Status: retired Current/Historical Medications Scheduled Cyclosporine (Ophth) (Restasis), 1 DROP OPB BID Dipyridamole/Aspirin (Aggrenox 25-200 mg), 1 CAP PO BID Esomeprazole Magnesium (Nexium), 1 CAP PO QAM Nitroglycerin (Nitrostat), 0.4 MG UT PRN Simvastatin (Zocor), 1 TAB PO QPM Scheduled PRN Albuterol Hfa (Ventolin Hfa), 2-4 PUFFS INH Q6H PRN for Shortness of Breath Allergies Coded Allergies: Clopidogrel (Verified Allergy, Severe, SHORTNESS OF BREATH, 06/22/18) Meperidine (Verified Allergy, Severe, DIFFICULTY BREATHING, 06/22/18) Unclassified Drugs (Verified Allergy, Unknown, NEOPRENE - RASH, 06/22/18) DENIES LATEX ALLERGY Physical Exam Vital Signs Date Time Temp Pulse Resp B/P (MAP) Pulse Ox O2 Delivery O2 Flow Rate FiO2 06/22/18 12:39 36.4 93 18 146/92 99 Room Air Physical Exam CONSTITUTIONAL/VITAL SIGNS: Reviewed / noted above. GENERAL: Non-toxic in appearance. INTEGUMENTARY: Warm, dry, and Falman. HEAD: Normocephalic. EYES: without scleral icterus or trauma. ENT/OROPHARYNX: clear and moist. LYMPHADENOPATHY/NECK: Is supple without lymphadenopathy or meningismus. RESPIRATORY: Lungs clear and equal. CARDIOVASCULAR: Regular rate and rhythm. GI/ABDOMEN: Soft and tender in the lower quadrants and suprapubic area. No organomegaly or pulsatile mass. No rebound or guarding. Normal bowel sounds. EXTREMITIES: Warm and well perfused. BACK: No CVA tenderness. NEUROLOGICAL: Intact without focal deficits. PSYCHIATRIC: normal affect. MUSCULOSKELETAL: Normally developed with good muscle tone. Medical Decision & Procedures ER Provider Diagnostic Interpretation: Radiology results as stated below per my review and radiologist interpretation: ABD/PELVIS NO IV OR ORAL CONT CT DOSE: 346.10 mGy.cm HISTORY: Pain. Nausea. ABDOMINAL PAIN/GI TECHNIQUE: Multiaxial CT images of the abdomen and pelvis were performed without contrast. A dose lowering technique was utilized adhering to the principles of ALARA. COMPARISON STUDY: 02/07/2018 FINDINGS: Lung bases are clear. Liver spleen and pancreas appear uniform. Prior cholecystectomy. Kidneys negative for hydronephrosis. Abdominal bowel pattern is nonobstructive. Moderate bladder wall thickening at its anterior and left lateral locations. Mild very cystic infiltrative change best seen transaxial image 70 superior to the left pubic ring. Cystitis must be considered. IMPRESSION: 1. Moderate bladder wall thickening left lateral and anterior aspect of the bladder associated with moderate localized pericystic infiltrative change. 2. Cystoscopy is recommended to exclude an inflammatory and/or potentially neoplastic process relating to the bladder. 3. Remainder the study is unremarkable postcholecystectomy. The above report was generated using voice recognition software. It may contain grammatical, syntax or spelling errors. Electronically signed by: John Suarez M.D. 06/22/2018 1:38 PM Dictated Date/Time: 06/22/2018 1:35 PM Laboratory Results 06/22/18 13:03 Red Blood Count 4.56, Mean Corpuscular Volume 95.0, Mean Corpuscular Hemoglobin 33.6, Mean Corpuscular Hemoglobin Concent 35.3, Mean Platelet Volume 10.4, Neutrophils (%) (Auto) 54.7, Lymphocytes (%) (Auto) 25.7, Monocytes (%) (Auto) 15.7, Eosinophils (%) (Auto) 3.0, Basophils (%) (Auto) 0.2, Neutrophils # (Auto ) 3.15, Lymphocytes # (Auto) 1.48, Monocytes # (Auto) 0.90, Eosinophils # (Auto ) 0.17, Basophils # (Auto) 0.01 06/22/18 13:03 Test 06/22/18 13:03 06/22/18 13:38 White Blood Count 5.75 K/uL (4.8-10.8) Red Blood Count 4.56 M/uL (4.7-6.1) Hemoglobin 15.3 g/dL (14.0-18.0) Hematocrit 43.3 % (42-52) Mean Corpuscular Volume 95.0 fL (80-100) Mean Corpuscular Hemoglobin 33.6 pg (25-34) Mean Corpuscular Hemoglobin Concent 35.3 g/dl (32-36) Platelet Count 136 K/uL (130-400) Mean Platelet Volume 10.4 fL (7.4-10.4) Neutrophils (%) (Auto) 54.7 % Lymphocytes (%) (Auto) 25.7 % Monocytes (%) (Auto) 15.7 % Eosinophils (%) (Auto) 3.0 % Basophils (%) (Auto) 0.2 % Neutrophils # (Auto) 3.15 K/uL (1.4-6.5) Lymphocytes # (Auto) 1.48 K/uL (1.2-3.4) Monocytes # (Auto) 0.90 K/uL (0.11-0.59) Eosinophils # (Auto) 0.17 K/uL (0-0.5) Basophils # (Auto) 0.01 K/uL (0-0.2) RDW Standard Deviation 42.1 fL (36.4-46.3) RDW Coefficient of Variation 12.3 % (11.5-14.5) Immature Granulocyte % (Auto) 0.7 % Immature Granulocyte # (Auto) 0.04 K/uL (0.00-0.02) Prothrombin Time 10.1 SECONDS (9.0-12.0) Prothromb Time International Ratio 1.0 (0.9-1.1) Activated Partial Thromboplast Time 26.6 SECONDS (21.0-31.0) Partial Thromboplastin Ratio 1.0 Anion Gap 8.0 mmol/L (3-11) Estimated GFR () 43.8 Estimated GFR (Non- 37.8 BUN/Creatinine Ratio 13.5 (10-20) Calcium Level 9.6 mg/dl (8.5-10.1) Total Bilirubin 0.8 mg/dl (0.2-1) Direct Bilirubin 0.2 mg/dl (0-0.2) Aspartate Amino Transf (AST/SGOT) 16 U/L (15-37) Alanine Aminotransferase (ALT/SGPT) 48 U/L (12-78) Alkaline Phosphatase 306 U/L (45-117) Total Protein 8.1 gm/dl (6.4-8.2) Albumin 4.2 gm/dl (3.4-5.0) Lipase 109 U/L (73-393) Urine Color DK YELLOW Urine Appearance CLEAR (CLEAR) Urine pH 7.5 (4.5-7.5) Urine Specific Amigo 1.013 (1.000-1.030) Urine Protein 2+ (NEG) Urine Glucose (UA) NEG (NEG) Urine Ketones NEG (NEG) Urine Occult Blood 2+ (NEG) Urine Nitrite NEG (NEG) Urine Bilirubin NEG (NEG) Urine Urobilinogen NEG (NEG) Urine Leukocyte Esterase SMALL (NEG) Urine WBC (Auto) 10-30 /hpf (0-5) Urine RBC (Auto) 5-10 /hpf (0-4) Urine Hyaline Casts (Auto) 5-10 /lpf (0-5) Urine Epithelial Cells (Auto) 10-20 /lpf (0-5) Urine Bacteria (Auto) NEG (NEG) Laboratory results as stated above per my review. Medications Administered Medications (Trade) Dose Ordered Sig/Robin Route Start Time Stop Time Status Last Admin Dose Admin Sodium Chloride 1,000 ml @ 999 mls/hr Q1H1M STAT IV 06/22/18 12:50 06/22/18 13:50 DC 06/22/18 13:12 999 MLS/HR Hydromorphone HCl (Dilaudid Inj) 1 mg NOW STAT IV 06/22/18 12:54 06/22/18 12:55 DC 06/22/18 13:13 1 MG ED Course 1245: Previous medical records were reviewed. The patient was evaluated in room C10. A complete history and physical examination was performed. 1250: Ordered Sodium Chloride 1000 ml @ 999 mls/hr IV. 1254: Ordered Dilaudid Inj 1 mg IV. 1300: Ordered Morphine Sulfate 4 mg IV. 1446: On reevaluation, the patient is resting. I discussed the results and findings with the patient. He verbalized agreement of the treatment plan. He was discharged home. Medical Decision Differential considered: pancreatitis, hepatitis, or acute cholecystitis, AAA, UTI, pyelonephritis, kidney stones, appendicitis, diverticulitis, shingles, bowel obstruction mesenteric ischemia, intussusception,hernia, testicular torsion. this is a 78-year-old male who presents to the ED with a chief complaint of lower abdominal pain. The patient states that he has had the pain since his surgery on 06/05/18. He had bladder cancer and had surgery with regards to removing a small tumor and had subsequent chemotherapy medication placed in the bladder. The patient reports that his pain is increased over the past several days. Nothing seems to make his pain better. Occasionally passing gas helps the discomfort. He also has been having burning with urination every hour or so since the surgery. His exam reveals normal stable vital signs. He does have tenderness to the lower abdomen on exam. CBC and complete metabolic panel were unremarkable. Creatinine is 1.7. This is around baseline for the patient. CT scan of the abdomen pelvis reveals moderate bladder wall thickening in the left lateral and anterior area with moderate localized pericystic inflammatory changes that could be concerning for an inflammatory process versus neoplastic process. This is the area the patient had his neoplastic process and surgery. The patient also had chemotherapy infusion to the bladder. Symptoms could possibly related to the chemotherapy. There was no clear infection on urinalysis. Culture has been sent. The patient was told the results. They have an appointment in [address] Basilio. He was felt to be stable for discharge. He was given IV Dilaudid and his symptoms improved with this. Medication Reconcilliation Current Medication List: was personally reviewed by me Blood Pressure Screening Patient's blood pressure: Elevated blood pressure Blood pressure disposition: Elevated BP felt to be situational Impression Primary Impression: Bladder cancer Additional Impression: Suprapubic pain Scribe Attestation The scribe's documentation has been prepared under my direction and personally reviewed by me in its entirety. I confirm that the note above accurately reflects all work, treatment, procedures, and medical decision making performed by me. Departure Information Dispostion Home / Self-Care Referrals Blaine Tolbert D.O. (PCP) Forms HOME CARE DOCUMENTATION FORM, IMPORTANT VISIT INFORMATION, WORK / SCHOOL INSTRUCTIONS Patient Instructions My [facility] Additional Instructions Follow-up with Dr. Basilio as scheduled on Saturday. Urine culture is pending. This should be back by Saturday. Return for significant worsening or new concerns. Problem Qualifiers
[2018-06-22 15:10] VITALS: BP 114/75; PULSE 66; O2SAT 97
== END 2018-06-22 15:10 | disposition home or self-care (01) ==
LOC: C.EDB 12:37 → C.EDC 15:10
DX: C67.9 Malignant neoplasm of bladder, unspecified (principal); I25.10 Atherosclerotic heart disease of native coronary artery without angina pectoris; N18.3 Chronic kidney disease, stage 3 (moderate); Z86.73 Personal history of transient ischemic attack (TIA), and cerebral infarction without residual deficits; K21.9 Gastro-esophageal reflux disease without esophagitis; Z87.440 Personal history of urinary (tract) infections; Z90.49 Acquired absence of other specified parts of digestive tract; Z83.3 Family history of diabetes mellitus; Z83.6 Family history of other diseases of the respiratory system; Z82.49 Family history of ischemic heart disease and other diseases of the circulatory system; Z87.891 Personal history of nicotine dependence; Z79.899 Other long term (current) drug therapy